=== PATIENT | female | born 1980 | race Caucasian/White ===

== ENCOUNTER 2024-11-17 10:42 | Emergency (ER) | payer SELFPAY ==
[2024-11-17 10:52] VITALS: BP 121/74
--- NOTE | 2024-11-17 11:50 | ED.GENMED ---
History of Present Illness
General
Chief Complaint: Breast Problem
Source: patient
Exam Limitations: none
Time Seen by Provider: 11/17/24 11:33
Nursing documentation reviewed up to this point in time: agreed with
History of Present Illness
History of Present Illness:
Patient is a 41-year-old female who presents to the ER for evaluation of a painful left breast. Several days ago she had a sharp pain behind her left breast and noticed a lump. She reports today the area is now larger and more tender. She does
report the area is red. She denies a ny injury.
Yet she denies any fever or chills. She does not feel ill. She is not breast-feeding/not .
She did have a normal mammogram she believes at age 41.
Currently however she does not have any insurance.
Patient has a known benign pituitary tumor
Review of Systems
Review of Systems
Allergies reviewed?: Yes
All Other Systems: ROS reviewed and negative except as documented in HPI and ROS
Constitutional: Reports no symptoms; Denies fever, fatigue or chills
EENT: Reports no symptoms
Respiratory: Reports no symptoms
Cardiac: Reports no symptoms
ABD/GI: Reports no symptoms
Musculoskeletal: Reports no symptoms
Skin: Reports other (redness /tenderness to left breast )
Psychiatric: Reports no symptoms
Phy Exam
General Physical Exam
General Presentation: no apparent distress
General age: appears stated age
General Skin: warm and dry
General Habitus: normal
General Mental: alert
General Hydration: appears well hydrated
Neurological Exam
Neurological Exam: alert and oriented x3
Musculoskeletal Exam
Musculoskeletal Exam: full ROM
Skin Exam
Skin Exam: normal color, warm/dry and other (Left breast with tenderness induration and redness from left lateral to inferior and right lateral breast; no nipple discharge nipple is not inverted )
Psychiatric Exam
Psychiatric Exam: normal mood/affect
Course
Orders/Labs/Results
Orders:
Orders
11/17/24 11:59
IV Insert/Care/Rem.- Treatment PRN
11/17/24 12:01
Test Result ONCE
11/17/24 12:03
Complete Blood Count/With Diff Urgent
Comprehensive Metabolic Panel Urgent
HCG, Serum Qualitative Screen Urgent
11/17/24 12:27
US Breast Left Ltd WDC Urgent
Reason for Exam: RED, TENDER, PAINFUL LUMP
11/17/24 14:34
Cephalexin Monohydrate [Keflex] 500 mg PO NOW STA
Abnormal Lab Results
11/17/24
12:03
Hgb 11.8 L g/dL
(12.0-16.0)
Hct 34.9 L %
(37.0-47.0)
MCV 77.9 L fL
(81.0-99.0)
MCH 26.3 L pg
(27.0-31.0)
MPV 11.0 H fL
(7.4-10.4)
Abs Immat Gran (auto) 0.1 H 10^3/uL
(0-0.05)
Absolute Neuts (auto) 7.7 H 10^3/uL
(1.4-6.5)
Absolute Monos (auto) 0.9 H 10^3/uL
(0.1-0.6)
Lymphocytes % 18.2 L %
(20.5-51.1)
ALT 48 H U/L
(0-35)
11/17/24 12:03
11/17/24 12:03
Vital Signs
Initial and Last Documented VS:
Initial Vital Signs
Temp Pulse Resp BP Pulse Ox
98.0 F 96 16 121/74 98
11/17/24 10:52 11/17/24 10:52 11/17/24 10:52 11/17/24 10:52 11/17/24 10:52
Last Documented Vital Signs
Temp Pulse Resp BP Pulse Ox
98.0 F 96 16 121/74 98
11/17/24 10:52 11/17/24 10:52 11/17/24 10:52 11/17/24 10:52 11/17/24 10:52
Presidential Support Specialist consulted with Physician
Presidential Support Specialist consulted with physician?: Yes
Name of Physician Consulted: Nano
MDM/Problems Addressed
Differential Diagnosis Includes:
Not limited to breast abscess, cellulitis mastitis
MDM/Problems Addressed:
Patient's ultrasound shows findings suggestive of cellulitis/mastitis with no evidence of abscess no focal collection. Patient is afebrile does not feel ill. Patient is afebrile with a normal white count. Case reviewed ED physician will treat
with Keflex and compresses. Patient does not have insurance we will have patient follow-up with a family practice clinic discussed with patient that she will need follow-up imaging including mammogram also will give patient breast surgery for
follow-up if needed.
Patient does have a known small benign pituitary tumor and she has been followed by fertility specialist they were just watching this. I did advise patient to speak with family practice clinic for follow-up regarding this known pituitary benign
tumor
*Radiology
Radiology exam reviewed: radiology read reviewed
*Pulse Oximetry
Patient hypoxic: no
*Critical Care Note
Total Time (30-74mins, 75-104mins- exclusive of procedures): Not Applicable
ED Attending Note
-
Portions of this chart may have been created with voice recognition software.� Occasional wrong word or��sound alike� substitutions may have occurred due to the inherent limitations of voice recognition software.
Discharge Plan
Departure
Patient Disposition: Home (Routine Discharge)
Date of Disposition: 11/17/24
Time of Disposition: 14:43
Patient with high blood pressure during this ER visit?: No
Covid-19: Not Applicable
Discharge Problem:
Cellulitis of left breast
Instructions: Cellulitis (Skin Infection), Adult (DC)
Prescriptions:
New
cephalexin 500 mg capsule
500 mg PO Q6H Qty: 28 0RF
Referrals:
[facility] [Provider Group]
[facility] [Outside]
Brit Kamara MD [Active] -
NONE,* [Family Provider] -
Activity Restrictions/Additional Instructions:
As discussed your ultrasound is negative for abscess but does show skin infection/cellulitis/mastitis. It is important you take prescribed antibiotic as discussed. This medication was sent to your pharmacy. Warm compresses to breast several times
a day. Follow-up with family practice medicine clinic. Please call today or tomorrow for an appointment in next 2 days. Return however to the ER if any worsening of symptoms include increased pain redness swelling red streaking fever chills.
You will need a follow-up mammogram.
This can be ordered by family practice clinic however you were also given information breast surgeon as well. Return if any worsening of symptoms
Interventions
Interventions:
*General Assessment Last Done: 11/17/24 11:14
ED- Fall Risk Assessment Last Done: 11/17/24 11:14
ED-Skin Assessment Last Done: 11/17/24 11:14
Discharge Date and Time
Print Language: BULGARIAN
[2024-11-17 12:30] LABS: % Basophils 0.5 % (0-2); % Eosinophils 1.2 % (0-6); % Immature Granulocytes 0.5 % (0-0.5); % Lymphocytes 18.2 % (20.5-51.1); % Monocytes 8.1 % (1.7-9.3); % Neutrophils 71.5 % (42.2-75.2); Absolute Basophils 0.1 10^3/uL (0-0.2); Absolute Eosinophils 0.1 10^3/uL (0-0.7); Absolute Immature Granulocytes 0.1 10^3/uL (0-0.05); Absolute Monocytes 0.9 10^3/uL (0.1-0.6); Absolute Neutrophils 7.7 10^3/uL (1.4-6.5); Hematocrit 34.9 % (37.0-47.0); Hemoglobin 11.8 g/dL (12.0-16.0); Mean Corp Hgb Conc. 33.8 g/dL (33.0-37.0); Mean Corpuscular Hgb 26.3 pg (27.0-31.0); Mean Corpuscular Volume 77.9 fL (81.0-99.0); Nucleated Red Blood Cells % 0 %; Platelet Count 283 10^3/uL (130-400); Red Blood Cell Count 4.48 10^6/uL (4.20-5.40); Red Cell Dist. Width 12.7 % (11.5-14.5); White Blood Cell Count 10.7 10^3/uL (4.8-10.8)
[2024-11-17 12:48] LABS: HCG, Serum Qualitative Screen Negative
[2024-11-17 13:00] LABS: ALT (SGPT) 48 U/L (0-35); AST (SGOT) 26 U/L (14-36); Albumin 4.3 g/dl (3.5-5.0); Alkaline Phosphatase 117 U/L (38-126); Blood Urea Nitrogen 13 mg/dl (7-17); Calcium 9.3 mg/dl (8.4-10.2); Carbon Dioxide 25 mmol/L (22-30); Chloride 105 mmol/L (98-107); Glucose 95 mg/dl (70-99); Sodium 138 mmol/L (135-145); Total Bilirubin 0.5 mg/dl (0.2-1.3); Total Protein 7.2 g/dl (6.3-8.2); eGFR > 60.00
[2024-11-17 14:53] VITALS: BP 122/74
[2024-11-17] MEDS: KEFLEX 500 MG PO (15:01)
== END 2024-11-17 16:17 | disposition home or self-care (01) ==
LOC: EMR 10:42
PROVIDERS: Nurse Practitioner; EMERGENCY PHYSICIAN Student in an Organized Health Care Education/Training Program
DX: N61.0 Mastitis without abscess (principal); D35.2 Benign neoplasm of pituitary gland; Z59.71 Insufficient health insurance coverage
CPT/HCPCS: 99284; 76642; 80053; 84703; 85025

== ENCOUNTER 2025-02-04 00:42 | Inpatient (IN) | payer OTHER, SELFPAY ==
[2025-02-03 19:54] VITALS: BP 113/77
[2025-02-03 20:10] LABS: % Basophils 0.6 % (0-2); % Eosinophils 3.7 % (0-6); % Immature Granulocytes 0.5 % (0-0.5); % Lymphocytes 18.9 % (20.5-51.1); % Monocytes 9.2 % (1.7-9.3); % Neutrophils 67.1 % (42.2-75.2); Absolute Basophils 0.1 10^3/uL (0-0.2); Absolute Eosinophils 0.3 10^3/uL (0-0.7); Absolute Lymphocytes 1.7 10^3/uL (1.2-3.4); Absolute Monocytes 0.8 10^3/uL (0.1-0.6); Hematocrit 32.9 % (37.0-47.0); Hemoglobin 10.8 g/dL (12.0-16.0); Mean Corp Hgb Conc. 32.8 g/dL (33.0-37.0); Mean Corpuscular Hgb 25.7 pg (27.0-31.0); Mean Corpuscular Volume 78.3 fL (81.0-99.0); Nucleated Red Blood Cells % 0 %; Platelet Count 387 10^3/uL (130-400); Red Cell Dist. Width 12.9 % (11.5-14.5); White Blood Cell Count 8.9 10^3/uL (4.8-10.8)
[2025-02-03 20:22] LABS: ALT (SGPT) 27 U/L (0-35); AST (SGOT) 20 U/L (14-36); Albumin 4.2 g/dl (3.5-5.0); Alkaline Phosphatase 83 U/L (38-126); Blood Urea Nitrogen 13 mg/dl (7-17); Calcium 9.4 mg/dl (8.4-10.2); Carbon Dioxide 26 mmol/L (22-30); Chloride 105 mmol/L (98-107); Glucose 105 mg/dl (70-99); Potassium 4.3 mmol/L (3.5-5.1); Sodium 141 mmol/L (135-145); Total Bilirubin 0.4 mg/dl (0.2-1.3); Total Protein 7.2 g/dl (6.3-8.2); eGFR > 60.00
[2025-02-03 22:08] VITALS: BP 102/62
--- NOTE | 2025-02-03 23:30 | ED.GENMED ---
History of Present Illness
General
Chief Complaint: Skin Surface Trauma
Source: patient
Exam Limitations: none
Time Seen by Provider: 02/03/25 23:07
Nursing documentation reviewed up to this point in time: agreed with
History of Present Illness
History of Present Illness:
44-year-old female with a history of a pituitary tumor
History of mastitis/cellulitis November 2024
Presents with pain, swelling, redness of her left breast starting on 4�19. It was a smaller area than it is currently. She says that she went to urgent care where they gave her Keflex which helped the previous cellulitis resolved fully in
November. Patient took a 7-day course without significant improvement and in fact now she is having worsening pain, induration and now drainage. She thinks it is draining from an area just medial to her nipple. Her nipple is retracted on that
side and she has a tender left axillary lymph node as well. I did review the previous imaging from November which did not show any area of induration or abscess but cellulitis and the lymph node then as well. Patient has not had a mammogram. She
does not have insurance.
Patient had drainage from the left breast redness off and on all day, increased pain and some chills subjectively.
She also has a slight cough and has history of asthma just when she gets sick. She has not been tested for flu or COVID.
Past History
Past History
ED Past Medical History: Asthma and Other (Pituitary tumor)
Review of Systems
Review of Systems
Allergies reviewed?: Yes
All Other Systems: Not applicable
Phy Exam
Physical Exam
Physical Exam:
GENERAL: Alert , in no apparent distress
EYE: pupils equal and reactive
NECK: Supple
ENT: o/p clr, mmm.
CARDIAC: Regular rate and rhythm .
Left breast significant cellulitis with most of the breast involved including the areola, the left nipple is retracted, there is an area of induration within the erythema about 6 x 5 cm which is very tender
There is a left axillary lymph node
LUNGS: Clear breath sounds bilaterally, no acute respiratory distress, no wheezes/rales/rhonchi
ABDOMEN: Soft, without focal tenderness, no r/g, no cvat, normal bowel sounds
NEUROLOGICAL: Alert and oriented, no focal neuro deficits
SKIN: Warm and dry, skin intact.
MUSCULOSKELETAL: No edema, well perfused. neg elyse's sign
PSYCH: Normal and appropriate interaction.
Course
Orders/Labs/Results
Orders:
Orders
02/03/25 20:02
Comprehensive Metabolic Panel Urgent
HCG, Serum Qualitative Screen Urgent
Comment: ADD ON
02/03/25 20:03
Complete Blood Count/With Diff Urgent
02/03/25 23:21
COVID-19 Antigen Urgent
Source: Nasal Swab
Influenza A+B Rapid Molecular Urgent
ABHINAV Source: Nasal Swab
Specimen Description:
02/03/25 23:22
Ketorolac [Toradol] 30 mg IV NOW STA
CR Chest - 2 Views Urgent
Comment:
Reason For Exam: cough
02/03/25 23:23
Add On- LAB Urgent
Tests Added?: hcg qualitative serum
02/03/25 23:30
Blood Culture Q30M
ABHINAV Source: Blood/Venous
Specimen Description:
02/03/25 23:31
Oxycodone/Acetaminophen [Percocet 5/325] 1 tablet PO NOW STA
Vancomycin [Vancocin] 2,000 mg 0.9% Sodium Chloride 500 ml [Nss] 500 ml IV NOW
02/04/25 00:19
Admit/Transfer Patient As Directed
Co-Sign Provider:
Level of Care: Inpatient admission
Assign to:: Medical/Surgical
Physician / Group: Jose
Diagnosis: Mastitis / Cellulitis
Reason for Hospitalization: Mastitis / Cellulitis - failed OP abx
Expected length of stay greater than two midnights?: Yes
ELOS- Estimated Length of Stay in days: 2
I certify the patient meets the requirements for IP care: Yes
PRN Pain Medication Management As Directed
May give lesser potent ordered pain med per pt: Yes
preference::
Protocol:: Medication orders for pain may be administered in a
manner that supports deferring to patient preference
when the pt is:
- Requesting an ordered lesser potent pain medication.
Least to most potent pain medications are defined
as: acetaminophen < NSAID < tramadol < opioids
(morphine, oxycodone, hydromorphone).
- Requesting a lesser dose of the same medication IF
ORDERED.
- Requesting a less intrusive route of administration
if both routes are prescribed by the provider (PO <
IV).
02/04/25 00:20
Code Status As Directed
Resuscitation Status: Full Code
02/04/25 00:32
Lactic Acid Q4H
Comment: CANCEL 2nd LACTIC ACID IF 1st LACTIC ACID IS LESS THAN 2
Blood Culture Q30M
ABHINAV Source: Blood/Venous
Specimen Description:
02/04/25 01:23
Wound Culture [Wound/Abscess/Other Culture] Urgent
ABHINAV Source: Breast
Specimen Description: Left
Date Specimen was Collected: 02/04/25
Time Specimen was Collected: 01:21
02/04/25 02:33
Acetaminophen [Tylenol] 650 mg PO Q4HPRN PRN
Albuterol Nebs [Ventolin Nebules] 2.5 mg INH R Q4HPRN PRN
HYDROmorphone [Dilaudid] 0.5 mg IV Q4HPRN PRN
Ketorolac [Toradol] 15 mg IV Q6HPRN PRN
VANCOMYCIN Pharmacy to Dose [VANCOCIN Pharmacy to Dose] 1 each Pharmacy To Prepare [Call Pharmacy To Prepare] 0 ml IV PER PROTOCOL
02/04/25 02:33
Breast Surgery Consult Routine
Consulting Provider: Brit Kamara
Was physician already notified: Yes
Reason for Consult: Mastitis / Cellulitis
Prolactin Routine
TSH Reflex To Free T4 Routine
Activity As Directed
Activity Level: Ambulate
I/O [Intake/ Output] As Directed
Frequency: Per unit guidelines
Pneumatic Compression Sleeves As Directed
Type: Knee high
Vital Signs As Directed
Frequency: Per unit guidelines
DX Deep Vein Thrombosis Video Routine
02/04/25 Breakfast
Regular
Basic Metabolic Panel IN AM
Complete Blood Count/No Diff IN AM
US Breast Left Ltd IN AM
Comment:
Reason For Exam: Mastitis / Cellulitis - r/o abscess
Abnormal Lab Results
02/03/25 02/03/25
20:02 20:03
Hgb 10.8 L g/dL
(12.0-16.0)
Hct 32.9 L %
(37.0-47.0)
MCV 78.3 L fL
(81.0-99.0)
MCH 25.7 L pg
(27.0-31.0)
MCHC 32.8 L g/dL
(33.0-37.0)
Absolute Monos (auto) 0.8 H 10^3/uL
(0.1-0.6)
Lymphocytes % 18.9 L %
(20.5-51.1)
Glucose 105 H mg/dl
(70-99)
02/03/25 20:03
02/03/25 20:02
Vital Signs
Initial and Last Documented VS:
Initial Vital Signs
Temp Pulse Resp BP Pulse Ox
36.9 C 78 16 113/77 99
02/03/25 19:54 02/03/25 19:54 02/03/25 19:54 02/03/25 19:54 02/03/25 19:54
Last Documented Vital Signs
Temp Pulse Resp BP Pulse Ox
36.7 C 70 18 114/64 95
02/04/25 02:40 02/04/25 02:40 02/04/25 02:40 02/04/25 02:40 02/04/25 02:40
MDM/Problems Addressed
Differential Diagnosis Includes:
Cellulitis, mastitis, malignancy, abscess
MDM/Problems Addressed:
44-year-old female with previous left mastitis/cellulitis of the left breast in November 2024 presents for recurrence with significant erythema, induration and now drainage, subjective chills but no fever here. Patient has an area of induration
within the cellulitis which is significantly covering the left breast. The nipple is retracted. She has a white count of 8.9. I talked to breast surgeon Dr. Kamara who recommended IV vancomycin, breast ultrasound and likely IR drainage if there
is a collection which can be done tomorrow.
*Critical Care Note
Total Time (30-74mins, 75-104mins- exclusive of procedures): Not Applicable
ED Attending Note
-
Portions of this chart may have been created with voice recognition software.� Occasional wrong word or��sound alike� substitutions may have occurred due to the inherent limitations of voice recognition software.
Discharge Plan
Departure
Patient Disposition: Admit
Date of Disposition: 02/03/25
Time of Disposition: 23:31
Admit to: Med/Surg
Presentation/result/management discussed w/ accepting MD/DO: Hospitalist
Condition: Fair
Covid-19: Not Applicable
Discharge Problem:
Abscess of breast, Cellulitis of breast
Interventions
Interventions:
*Risk Screen - Suicide Last Done: 02/03/25 19:54
*General Assessment Last Done: 02/03/25 19:54
*Neglect/Abuse Screening Last Done: 02/03/25 19:54
*ED- Fall Risk Assessment Last Done: 02/03/25 23:45
*ED COVID-19 Vaccine History Last Done: 02/03/25 19:54
*Nursing Disposition Last Done: 02/04/25 02:30
ED-Skin Assessment Last Done: 02/03/25 23:45
Discharge Date and Time
Discharge Date/Time: 02/04/25 02:30
[2025-02-04 00:02] VITALS: BMI 28.7
[2025-02-04 00:10] VITALS: BP 130/81
[2025-02-04 00:14] LABS: HCG, Serum Qualitative Screen Negative
--- NOTE | 2025-02-04 00:24 | HPS.HSE ---
Family Physician
-
Family Physician: * NONE
Chief Complaint
-
L Breast pain, swelling, redness
History of Present Illness
Patient is a 44y F with PMH significant for pituitary adenoma and thyroid disease who presents to ED complaining of pain, swelling and redness of the L breast. Patient states that her symptoms started about 2 weeks ago and have been steadily
progressive since that time. Patient noted severe pain, swelling and redness in the L breast. She was seen at an Urgent Care and started on Keflex which she took for one week. She noted perhaps mild improvement in redness - but symptoms did not
resolve. Over the past few days, her pain and swelling have become much worse. Patient notes that she has had oozing of blood and purulent discharge from the breast in the area superior to the nipple. She states that the overlying skin in this
area has 'peeled off'. Patient reports sweats and chills over the past 24 hours. She presented to the ED for further evaluation.
Patient had a similar episode in November of this year. Symptoms at that time fully resolved after a course of Keflex.
She has had a single mammogram in the past which was reportedly unremarkable.
Medical History
Past Medical History
Past Medical History: Reports Other
Additional Past Medical History:
Pituitary Adenoma
Hypothyroidism
Asthma
Past Surgical History: Reports Other
Additional Past Surgical History:
x 2
Social History
Tobacco: Non-smoker
Alcohol: Occasional
Drug: None
Family History
Family History: Other (MGM: Breast Cancer Mother: Thyroid Disease, MS)
Allergies / Home Medications
Allergies reflects when Allergies were last updated in [facility].
Home Medications with original date entered in [facility]
Allergy/Medication List:
Allergies
Allergy/AdvReac Type Severity Reaction Status Date / Time
No Known Allergies Allergy Verified 02/03/25 20:00
Home Medications
albuterol sulfate 90 mcg/actuation aerosol inhaler 2 puff inhalation Q6H PRN SOB 02/04/25
ibuprofen 200 mg tablet 800 mg PO Q6H PRN Pain 02/04/25
vit no.95-ferrous fumarate 28 mg-folic acid 800 mcg tablet () 1 tab PO DAILY 02/04/25
Review of Systems
-
History Source: Patient
A 12 point ROS was completed and negative except as noted: Yes
Constitutional: Reports Chills; Denies Fever or Fatigue
EENT: Denies Sore Throat
Respiratory: Reports Cough; Denies Trouble Breathing
Cardiac: Denies Chest Pain or Palpitations
Abdomen/GI: Denies Abdominal Pain, Nausea, Vomiting or Diarrhea
: Denies Dysuria or Frequency
Musculoskeletal: Denies Edema
Skin: Reports Other (Pain, swelling, redness L breast)
Neurological: Denies Dizzy or Headache
Psych: Denies Depression or Anxiety
Physical Exam
Vital Signs
Vital Signs
Temp Pulse Resp BP Pulse Ox
98.5 F 72 16 102/62 100
02/03/25 19:54 02/03/25 22:08 02/03/25 19:54 02/03/25 22:08 02/03/25 22:08
Physical Exam
General: Other (44y F in mild distress due to pain in the L breast.)
HEENT: Moist mucous membranes and PERRLA
Respiratory: Clear; No Wheezes, Rales or Rhonchi
Cardiac: S1/S2 and Regular Rhythm; No Murmur
Breast: Other (Induration of the breast centering on the areola. Pos tenderness without evident fluctuance. Increased warmth and erythema. Pos associated axillary adenopathy.)
GI: Soft, Non Tender, Non Distended and Normal Bowel Sounds
Musculoskeletal: No Clubbing, No Cyanosis and No Edema
Neuro: AO x 3
Laboratory Results
-
02/03/25 20:03
02/03/25 20:02
Laboratory Results
Total Bilirubin 0.4 mg/dl (0.2-1.3) 02/03/25 20:02
AST 20 U/L (14-36) 02/03/25 20:02
ALT 27 U/L (0-35) 02/03/25 20:02
Alkaline Phosphatase 83 U/L (38-126) 02/03/25 20:02
Impression/Plan
-
A/P: Patient is a 44y F with PMH significant for asthma and pituitary adenoma who presents to ED c/o pain, swelling and redness in the L breast for about 2 weeks.
Mastitis / Cellulitis of the Left Breast
- Admit for further evaluation and treatment. Failed outpatient oral antibiotics.
- IV Vancomycin for now.
- Culture of discharge sent from ED.
- Breast Surgery evaluation for additional recommendations.
- Supportive care including pain control, etc.
- Follow for clinical improvement.
Pituitary Adenoma
- Unclear details. Patient states that she was diagnosed in 2022 and completed 3 months of medication to shrink the tumor.
- Did not follow-up after that.
- No vision changes or evident new symptoms.
Hypothyroidism
- Patient stopped T4 supplementation due to hair changes / thinning.
- Update TFTs.
Mild Intermittent Asthma
- Stable. Albuterol PRN.
DVT Prophylaxis: SCDs
Code Status: Full
[2025-02-04] MEDS: PERCOCET 5/325 1 TABLET PO (01:00)
[2025-02-04 01:10] VITALS: BP 120/74
[2025-02-04] MEDS: TORADOL 30 MG IV (01:15)
[2025-02-04 01:34] LABS: COVID-19 Antigen Negative (Negative)
[2025-02-04] MEDS: VANCOCIN 530 MG IV (01:40)
[2025-02-04] MEDS: FLUSH (NSS) 1 FLUSH IV (01:45)
[2025-02-04 01:58] LABS: Lactic Acid 0.7 mmol/L (0.7-2.0)
[2025-02-04 02:40] VITALS: BP 114/64; BMI 28.9
[2025-02-04] MEDS: DILAUDID 0.5 MG IV ×4 (03:16→20:03)
[2025-02-04] MEDS: FLUSH (NSS) 2 FLUSH IV (03:17)
--- NOTE | 2025-02-04 04:27 | PTCARENOTE ---
Patient received from ED via stretcher and ambulated to bed. IV Vanco infusing per order. Patient was oriented to room and surroundings. Dilaudid for left breast pain per order. See nursing assessment for physical findings.
[2025-02-04 07:15] LABS: Hematocrit 29.3 % (37.0-47.0); Hemoglobin 9.5 g/dL (12.0-16.0); Mean Corp Hgb Conc. 32.4 g/dL (33.0-37.0); Mean Corpuscular Hgb 25.5 pg (27.0-31.0); Mean Corpuscular Volume 78.8 fL (81.0-99.0); Mean Platelet Volume 10.6 fL (7.4-10.4); Platelet Count 324 10^3/uL (130-400); Red Blood Cell Count 3.72 10^6/uL (4.20-5.40)
--- NOTE | 2025-02-04 07:49 | CON.ONC ---
Impression
Impression
43 Y/O female with left breast abscess.
Plan
Plan
For US today and IR drainage. These patients follow with me as an outpatient for drain management.
Suggest multimodality pain medication, IV or PO Tylenol 3000mg per day in divided doses, Standing Tordal dose and Dilaudid for breakthrough
Also needs bowel protocol.
Patient History
History of Present Illness
44 Y/O female admitted with left breast abscess
Past-Medical/Surgical History
The pt is menses onset age 12, first age 18, menstruating, MGM with breast ca unknown age, mammo at 41 [facility] who started in Nov
with left breast cellulitis that responded to antibiotic therapy, but never completely resolved. At [facility], the breast became more erythematous and the
pt again went to an Urgent Care for care and was placed on an antibiotic. Over the past few days, the breast became more indurated and painful and
she experienced sweats and shaking chills with a fever. She present to the ED overnight.
Patient Medication
�Medication �Instructions �Recorded �Confirmed �Last Taken �Type
albuterol sulfate 90 mcg/actuation 2 puff inhalation Q6H PRN SOB 02/04/25 02/04/25 Unknown History
aerosol inhaler
ibuprofen 200 mg tablet 800 mg PO Q6H PRN Pain 02/04/25 02/04/25 Unknown History
vit no.95-ferrous 1 tab PO DAILY 02/04/25 02/04/25 Unknown History
fumarate 28 mg-folic acid 800 mcg
tablet ()
Active Medications
Generic Name Dose Route Start Last Admin
Trade Name Freq PRN Reason Stop Dose Admin
Acetaminophen 650 mg 02/04/25 02:33
Acetaminophen 325 Mg Tablet PO 03/04/25 02:32
Q4HPRN PRN
Mild Pain / Temp > 101
Albuterol Sulfate 2.5 mg 02/04/25 02:33
Albuterol Nebs 2.5 Mg/3 Ml Ampul INH
R Q4HPRN PRN
SOB
Protocol
Hydromorphone HCl 0.5 mg 02/04/25 02:33 02/04/25 03:16
Hydromorphone 0.5 Mg/0.5 Ml Syringe IV 02/18/25 02:32 0.5 mg
Q4HPRN PRN Administration
Severe Pain
Vancomycin HCl 1 each/ Device 0 mls @ 0 mls/hr 02/04/25 02:33
IV
PER PROTOCOL CHELSEA
As Directed
Ketorolac Tromethamine 15 mg 02/04/25 02:33
Ketorolac 15 Mg/Ml Injection IV 02/09/25 02:32
Q6HPRN PRN
Moderate Pain
Sodium Chloride 0 flush 02/04/25 02:00 02/04/25 03:17
Sodium Chloride 0.9% (Flush) Syringe IV 03/04/25 01:59 2 flush
PER PROTOCOL CHELSEA Administration
Review of Systems
-
History Source: Patient
All Other Systems: Reviewed and Negative
Constitutional: Reports Night Sweats and Chills
EENT: Reports No Symptoms
Respiratory: Reports No Symptoms
Cardiac: Reports No Symptoms
GI: Reports No Symptoms
Breast: Reports Mass/Lump, Skin Changes, Pain and Other (discharge from the nipple complex)
: Reports No Symptoms
Musculoskeletal: Reports No Symptoms
Skin: Reports No Symptoms
Neuro: Reports No Symptoms
Endocrine: Reports No Symptoms
Hematologic/Lymphatic: Reports No Symptoms
Allergy / Immunology: Reports No Symptoms
Psych: Reports No Symptoms
Physical Exam
-
General: Well Developed, Well Nourished and Pain
Cardiology: Normal Sinus Rhythm
Pulmonary: Clear
GI: Soft
Musculoskeletal: No Clubbing and No Cyanosis
Extremities: No C/C/E
Neurology: Non Focal
Skin: Warm and Dry
Hematologic / Lymphatic: No Lymphadenopathy
Psych: Calm
Labs
Lab Results
WBC 7.0 10^3/uL (4.8-10.8) 02/04/25 06:42
RBC 3.72 10^6/uL (4.20-5.40) L 02/04/25 06:42
Hgb 9.5 g/dL (12.0-16.0) L 02/04/25 06:42
Hct 29.3 % (37.0-47.0) L 02/04/25 06:42
MCV 78.8 fL (81.0-99.0) L 02/04/25 06:42
MCH 25.5 pg (27.0-31.0) L 02/04/25 06:42
MCHC 32.4 g/dL (33.0-37.0) L 02/04/25 06:42
RDW 13.0 % (11.5-14.5) 02/04/25 06:42
Plt Count 324 10^3/uL (130-400) 02/04/25 06:42
MPV 10.6 fL (7.4-10.4) H 02/04/25 06:42
Abs Immat Gran (auto) 0.0 10^3/uL (0-0.05) 02/03/25 20:03
Absolute Neuts (auto) 6.0 10^3/uL (1.4-6.5) 02/03/25 20:03
Absolute Lymphs (auto) 1.7 10^3/uL (1.2-3.4) 02/03/25 20:03
Absolute Monos (auto) 0.8 10^3/uL (0.1-0.6) H 02/03/25 20:03
Absolute Eos (auto) 0.3 10^3/uL (0-0.7) 02/03/25 20:03
Absolute Basos (auto) 0.1 10^3/uL (0-0.2) 02/03/25 20:03
Immature Gran % 0.5 % (0-0.5) 02/03/25 20:03
Neutrophils % 67.1 % (42.2-75.2) 02/03/25 20:03
Lymphocytes % 18.9 % (20.5-51.1) L 02/03/25 20:
Monocytes % 9.2 % (1.7-9.3) 02/03/25 20:
Eosinophils % 3.7 % (0-6) 02/03/25 20:
Basophils % 0.6 % (0-2) 02/03/25 20:03
Creatinine 0.7 mg/dL (0.6-1.0) 02/03/25 20:02
Vital Signs
Vital Signs
Temp Pulse Resp BP Pulse Ox
98.0 F 70 18 114/64 95
02/04/25 02:40 02/04/25 02:40 02/04/25 02:40 02/04/25 02:40 02/04/25 02:40
--- NOTE | 2025-02-04 08:11 | W.PN.HOSP.TC ---
Today's Communication/Plan
-
Continue IV antibiotics, follow cultures
Assessment / Plan
Assessment / Plan
Physical Exam
General: Not in acute distress
HEENT: Normocephalic. Moist mucous membranes
Respiratory: Clear to Auscultation Bilaterally
Cardiac: S1/S2 and Regular Rhythm
GI: Soft, Non Tender, Non Distended and Normal Bowel Sounds
Musculoskeletal: No Cyanosis and No Edema
Neuro: AO x 3
Assessment/Plan
44y F with PMH significant for pituitary adenoma and thyroid disease who presented to ED complaining of pain, swelling and redness of the L breast. Patient states that her symptoms started about 2 weeks prior and have been steadily progressive
since that time. Patient noted severe pain, swelling and redness in the L breast. She was seen at an Urgent Care and started on Keflex which she took for one week. She noted perhaps mild improvement in redness - but symptoms did not resolve.
Over the few days prior to presentation, her pain and swelling became much worse. Patient noted that she has had oozing of blood and purulent discharge from the breast in the area superior to the nipple. She stated that the overlying skin in this
area has 'peeled off'. Patient reported sweats and chills over the 24 hours prior to presentation. She presented to the ED for further evaluation.
Patient had a similar episode in November 2024 -- symptoms at that time fully resolved after a course of Keflex.
She has had a single mammogram in the past which was reportedly unremarkable.
Mastitis / Cellulitis of the Left Breast with bloody and purulent drainage prior to arrival -- failed outpatient Keflex
History of Mastitis / Cellulitis of the Left Breast in November 2024 -- at that time did resolved with Keflex
Sweats and Chills prior to presentation
- Continue IV Vancomycin for now.
- Culture of discharge sent from ED -- follow-up
- Breast Surgery evaluation for additional recommendations.
- Breast Ultrasound with marked edema but no abscess collection --> discussed with IR, no role for IR intervention
- Multimodality pain control: Tylenol 3000mg per day in divided doses, Standing Toradol dose and Dilaudid for breakthrough pain
- Bowel regimen
- Patient can call Dr. Kamara's office on discharge to follow-up
- Contact precautions as she is draining fluid as per Dr. Kamara
Pituitary Adenoma
- Unclear details. Patient states that she was diagnosed in 2022 and completed 3 months of medication to shrink the tumor.
- Did not follow-up after that.
- Elevated prolactin this admission
- No vision changes or evident new symptoms.
Hypothyroidism
- Patient stopped T4 supplementation due to hair changes / thinning.
- Update TFTs noted
Mild Intermittent Asthma
- Stable. Albuterol PRN.
DVT Prophylaxis: SCDs. Lovenox.
Code Status: Full Code
Anticipated Discharge: 24 - 48 hours
Subjective/Interval History
-
Date of Service: February 04, 2025
Patient was seen and examined. She felt a bit better, denied any new symptoms or complaints.
Objective Data
-
Labs:
Laboratory Results
02/03/25 02/04/25
20:02 06:42
WBC 7.0
Hgb 9.5 L
Hct 29.3 L
Plt Count 324
Sodium 141 Pending
Potassium 4.3 Pending
Chloride 105 Pending
Carbon Dioxide 26 Pending
BUN 13 Pending
Creatinine 0.7 Pending
Glucose 105 H Pending
Calcium 9.4 Pending
Total Bilirubin 0.4
AST 20
ALT 27
Alkaline Phosphatase 83
Vital Signs:
Vital Signs
Temp Pulse Resp BP Pulse Ox
98.0 F 70 18 114/64 95
02/04/25 02:40 02/04/25 02:40 02/04/25 02:40 02/04/25 02:40 02/04/25 02:40
I&O
02/03/25 02/04/25 02/05/25
06:59 06:59 06:59
Intake Total 500 / 500 960 / 960
Balance 500 / 500 960 / 960
[2025-02-04 08:21] VITALS: BP 115/67
[2025-02-04] MEDS: TORADOL 15 MG IV ×2 (08:51→15:56)
[2025-02-04 09:37] LABS: Free T4 0.98 ng/dl (0.78-2.19)
[2025-02-04 09:38] LABS: Blood Urea Nitrogen 11 mg/dl (7-17); Calcium 8.8 mg/dl (8.4-10.2); Carbon Dioxide 23 mmol/L (22-30); Chloride 106 mmol/L (98-107); Estimated Creatinine Clearance 85 ml/min; Glucose 149 mg/dl (70-99); Potassium 3.6 mmol/L (3.5-5.1); Sodium 140 mmol/L (135-145); eGFR > 60.00
--- NOTE | 2025-02-04 09:48 | PHA.VAN.IN ---
Assessment
- Assessment
Renal Function: Appears similar to baseline
AUC Dosing Plan
- Dosing Variables
Dosing Weight (kg): 65
Dosing CrCl (ml/min): 85
Vd coefficient (L/kg): 0.7
- Empiric Dosing
Initial / Loading Dose: 1500mg - 5/2 01:40
Maintenance Regimen: Vanc 750mg Q12H starting at 1800
Estimated AUC (mcg*h/mL): 456
Estimated Peak (mcg*h/mL): 27.8
Estimated Trough (mcg/ml): 12.2
Estimated Half Life (H): 9.2
- Monitoring
No levels ordered at this time: consider levels in next few days
Pharmacokinetics Vancomycin I
- -
Patient Age: 44
Patient Sex: Female
Vancomycin Day #: 1
Indication: Skin And Soft Tissue
Requesting Provider: Dr. Garcia
Pertinent Antimicrobial Allergies:
NKDA
Height / Weight:
Height 4 ft 11 in
Actual Weight 64.864 kg
Pertinent Past Medical History: Pituitary adenoma
- Vital Signs / Lab Results
Temp Pulse Resp BP Pulse Ox
98 F 67 18 115/67 99
02/04/25 08:21 02/04/25 08:21 02/04/25 08:21 02/04/25 08:21 02/04/25 08:21
Lab Results - Hematology
02/03/25 02/04/25
20:03 06:42
WBC 8.9 7.0
Lab Results - Chemistry
02/03/25 02/04/25
20:02 06:42
BUN 13 11
Creatinine 0.7 0.7
Estimated Creat Clear 85
Albumin 4.2
02/04/25 02/04/25
00:07 00:32
Lactic Acid Cancelled 0.7
Microbiology Results
02/04/25 01:23 Gram Stain - Preliminary
Breast - Left
02/04/25 00:07 Influenza Types A & B (FAUSTO) - Final
Nasal Swab Negative for Influenza A & B, NAAT
Negative results must be combined with clinical observations
and patient history.
Nucleic Acid Amplification test (NAAT)performed on the
[employer] platform.
--- NOTE | 2025-02-04 11:49 | W.PN.UPDATE ---
Update Note
Progress Note Update
44 yo female with left breast cellulitis on abx.
US 02/04/25 shows no discreet abscess. No role for IR at this time
Continue ABX
[2025-02-04 15:00] LABS: Prolactin 75.2 ng/ml (3.0-18.6)
--- NOTE | 2025-02-04 15:10 | CM ---
Pt off the flr for ultrasound. Spoke w/ patient's sig other for initial assessment. Patient is a 44y F with PMH significant for pituitary adenoma and thyroid disease who presents to ED complaining of pain, swelling and redness of the L breast.
Patient resides w/ sig other in a [facility]- 1 step to enter. Independent w/ ambulating, no device required. Independent w/ ADLs. Patient has a nebulizer that is used as needed. No other DME identified. Denies SNF/HC hx.
Address and point of contact verified. Per sig other, patient does not currently have insurance, patient is in the process of switching insurances. According to sig other, patient should have active insurance soon.
Patient uses [facility] pharmacy in [place]
Plan: Anticipate home, no needs
[2025-02-04] MEDS: TYLENOL 1000 MG PO ×2 (15:40→23:07)
[2025-02-04 16:18] VITALS: BP 109/64
--- NOTE | 2025-02-04 17:00 | TRANSFER ---
Patient transferred from to 4W. Ambulated to new room. AAOx3, denies any acute complaints at this time. Call olivier within reach. Plan of care ongoing.
[2025-02-04] MEDS: VANCOCIN 150 IV (17:18)
[2025-02-04] MEDS: SENOKOT-S 1 TABLET PO (19:52)
[2025-02-04 23:15] VITALS: BP 117/62
[2025-02-05 00:23] VITALS: BP 117/62
[2025-02-05] MEDS: VANCOCIN 150 IV (06:00)
[2025-02-05 07:00] VITALS: BP 119/69
[2025-02-05 07:15] LABS: % Basophils 0.5 % (0-2); % Eosinophils 5.8 % (0-6); % Immature Granulocytes 0.5 % (0-0.5); % Lymphocytes 24.3 % (20.5-51.1); % Monocytes 8.5 % (1.7-9.3); % Neutrophils 60.4 % (42.2-75.2); Absolute Eosinophils 0.4 10^3/uL (0-0.7); Absolute Lymphocytes 1.6 10^3/uL (1.2-3.4); Absolute Monocytes 0.5 10^3/uL (0.1-0.6); Absolute Neutrophils 3.9 10^3/uL (1.4-6.5); Hematocrit 31.1 % (37.0-47.0); Hemoglobin 10.1 g/dL (12.0-16.0); Mean Corp Hgb Conc. 32.5 g/dL (33.0-37.0); Mean Corpuscular Hgb 25.6 pg (27.0-31.0); Mean Corpuscular Volume 78.9 fL (81.0-99.0); Mean Platelet Volume 10.8 fL (7.4-10.4); Nucleated Red Blood Cells % 0 %; Platelet Count 321 10^3/uL (130-400); Red Blood Cell Count 3.94 10^6/uL (4.20-5.40); White Blood Cell Count 6.4 10^3/uL (4.8-10.8)
[2025-02-05 07:37] LABS: Blood Urea Nitrogen 13 mg/dl (7-17); Calcium 8.8 mg/dl (8.4-10.2); Carbon Dioxide 28 mmol/L (22-30); Chloride 107 mmol/L (98-107); Estimated Creatinine Clearance 85 ml/min; Glucose 105 mg/dl (70-99); Potassium 4.2 mmol/L (3.5-5.1); Sodium 141 mmol/L (135-145); eGFR > 60.00
[2025-02-05] MEDS: SENOKOT-S 1 TABLET PO (09:08)
[2025-02-05] MEDS: TYLENOL 1000 MG PO ×3 (09:08→22:59)
[2025-02-05] MEDS: TORADOL 15 MG IV ×2 (09:29→20:50)
--- NOTE | 2025-02-05 10:56 | W.PN.HOSP.TC ---
Today's Communication/Plan
-
Add cefepime
Consult ID
Assessment / Plan
Assessment / Plan
Physical Exam
General: Not in acute distress
HEENT: Normocephalic. Moist mucous membranes
Respiratory: Clear to Auscultation Bilaterally
Cardiac: S1/S2 and Regular Rhythm
GI: Soft, Non Tender, Non Distended and Normal Bowel Sounds
Musculoskeletal: No Cyanosis and No Edema
Neuro: AO x 3
Psych:calm
Assessment/Plan
# Left breast Mastitis / Cellulitis of the Left Breast with bloody and purulent drainage prior to arrival -- failed outpatient Keflex
History of Mastitis / Cellulitis of the Left Breast in November 2024 -- at that time did resolved with Keflex
Sweats and Chills prior to presentation
- Culture of discharge sent from ED -- pending result
- Breast Ultrasound with marked edema but no abscess collection --> discussed with IR, no role for IR intervention
- Multimodality pain control: Tylenol 3000mg per day in divided doses, Standing Toradol dose and Dilaudid for breakthrough pain
- Bowel regimen
- Appreciate Dr. Kamara's help
- Add Cefepime
Consult ID doctor
Pituitary Adenoma
- Unclear details. Patient states that she was diagnosed in 2022 and completed 3 months of medication to shrink the tumor.
- Did not follow-up after that.
- Elevated prolactin this admission
- No vision changes or evident new symptoms.
Hypothyroidism
- Patient stopped T4 supplementation due to hair changes / thinning.
- Update TFTs noted
Mild Intermittent Asthma
- Stable. Albuterol PRN.
DVT Prophylaxis: SCDs. Lovenox.
Code Status: Full Code
Total time spent to see the patient, examine the patient, review data and lab result, discuss treatment plan with the patient, nursing staff around 55 minutes
Anticipated Discharge: > 48 hours
Subjective/Interval History
-
Date of Service: February 05, 2025
She is feeling better
no nausea
Would like to eat diet
Objective Data
-
Labs:
Laboratory Results
02/05/25
07:01
WBC 6.4
Hgb 10.1 L
Hct 31.1 L
Plt Count 321
Sodium 141
Potassium 4.2
Chloride 107
Carbon Dioxide 28
BUN 13
Creatinine 0.7
Glucose 105 H
Calcium 8.8
Vital Signs:
Vital Signs
Temp Pulse Resp BP Pulse Ox
97.8 F 59 20 119/69 97
02/05/25 07:00 02/05/25 07:00 02/05/25 07:00 02/05/25 07:00 02/05/25 07:00
I&O
02/04/25 02/05/25 02/06/25
06:59 06:59 06:59
Intake Total 500 / 500 1440 / 1440
Balance 500 / 500 1440 / 1440
--- NOTE | 2025-02-05 11:12 | PHA.VAN.FU ---
Vancomycin Assessment / Plan
- Assessment
Renal Function: Stable
WBC's are: WNL
In the past 24 hrs, patient has been: Afebrile
Concomitant Antimicrobials: Cefepime
- Dosing Plan
Continue: vancomycin 750mg q12h - first dose 02/04 1800
- Monitoring Plan
No level(s) ordered at this time: consider levels after Friday nadege dose
- Follow Up
Pharmacy will continue to follow.
Vancomycin Follow UP
- -
Patient Age: 44
Patient Sex: Female
Vancomycin Day #: 2
Indication: Skin And Soft Tissue
Requesting Provider: Dr. Garcia
Pertinent Antimicrobial Allergies:
NKDA
Height / Weight:
Height 4 ft 11 in
Actual Weight 64.864 kg
Pertinent Past Medical History: Pituitary adenoma
- Vital Signs / Lab Results
Temp Pulse Resp BP Pulse Ox
97.8 F 59 20 119/69 97
02/05/25 07:00 02/05/25 07:00 02/05/25 07:00 02/05/25 07:00 02/05/25 07:00
Lab Results - Hematology
02/03/25 02/04/25 02/05/25
20:03 06:42 07:01
WBC 8.9 7.0 6.4
Lab Results - Chemistry
02/03/25 02/04/25 02/05/25
20:02 06:42 07:01
BUN 13 11 13
Creatinine 0.7 0.7 0.7
Estimated Creat Clear 85 85
Albumin 4.2
02/04/25 02/04/25
00:07 00:32
Lactic Acid Cancelled 0.7
Microbiology Results
02/04/25 06:24 MRSA Screen - Final
Nose No Methicillin Resistant Staphylococcus aureus isolated.
02/04/25 00:32 Blood Culture - Preliminary
Blood/Venous No Growth in 24 hours- Final report to follow
02/04/25 00:32 Blood Culture - Preliminary
Blood/Venous No Growth in 24 hours- Final report to follow
02/04/25 01:23 Gram Stain - Preliminary
Breast - Left
02/04/25 00:07 Influenza Types A & B (FAUSTO) - Final
Nasal Swab Negative for Influenza A & B, NAAT
Negative results must be combined with clinical observations
and patient history.
Nucleic Acid Amplification test (NAAT)performed on the
[employer] platform.
[2025-02-05] MEDS: MAXIPIME 2000 MG IV (13:18)
[2025-02-05] MEDS: STERILE WATER FOR INJECTION 10 ML IV ×3 (13:20→22:59)
[2025-02-05] MEDS: DILAUDID 0.5 MG IV ×2 (13:33→18:16)
--- NOTE | 2025-02-05 14:08 | CON.ID ---
Consultation
-
Date/Time Consultation Requested: 02/05/2025 1057
Date/Time Consultation Performed: 02/05/2025 1341
Requesting Provider: Dr. Garcia
Performing Provider: Dr. Nova
Reason for Consultation: Left breast abscess
Chief Complaint / Past History
History of Present Illness
Eugenia Medley is a 44-year-old female being evaluated at the request of Dr. Garduno in regards to left breast abscess. History is obtained from chart review, along with patient interview. Additional history is obtained from review of old records
contained in the hospital EMR system.
The patient reports a prior history of left breast infection in mid November, when she developed a lump in the superior portion of her left breast. After approximately 1 week she presented for evaluation, and ultimately she was discharged on a
course of Keflex. She notes that after a week of antibiotics the area completely resolved. She had no recurrence of issues until approximately 2 weeks ago when she was visiting her daughter in [facility] and noticed a lump and pain again
in the left breast. She was prescribed Keflex, and she noted some mild improvement over the intervening week, but then she developed increasing pain and swelling of the area over the past several days and came to the ER for further evaluation.
Additionally, with this episode she noted some drainage from the 11:00 area just outside of the nipple line. She additionally noted some bloody drainage. She admits to some fevers prior to coming to the ER.
Here, ultrasound imaging did not reveal a discrete abscess. Infectious Diseases asked to comment on further antimicrobial therapy. She has not had any fever since admission.
Past History
Additional Past Medical History:
Benign pituitary tumor
Hypothyroidism
Asthma
Additional Past Surgical History:
x 2
Allergy History:
No Known Allergies Allergy (Verified 02/03/25 20:00)
Medications Reviewed: Yes
Current Antibiotics:
Vancomycin
Cefepime
Social History
Tobacco: Non-Smoker
Alcohol: None
Drug: None
Personal: Partner
Living: With Family
Employment: Employed
Family History
Family History: Not Pertinent
Review of Systems
Vital Signs
Temp Pulse Resp BP Pulse Ox
97.8 F 59 20 119/69 97
02/05/25 07:00 02/05/25 07:00 02/05/25 07:00 02/05/25 07:00 02/05/25 07:00
Physical Exam
Physical Exam
Constitutional: No Acute Distress, Comfortable and Non-toxic
Eyes: Pupils Equal, Pupils Round, No Conjunctival Hemorrhage and Sclera Anicteric
Oral: No Thrush and No Ulcers
Cardiovascular: Regular Rate and S1/S2; Negative S3/S4
Pulmonary: Clear; Negative Wheezes, Rales or Rhonchi
Gastrointestinal: Soft, Non Tender and Non Distended
Extremities: Negative Edema, Cyanosis or Erythema
Skin: Other (Left breast area with erythema in the periareolar area especially superior. There is some suspected fluctuance in the 12 o'clock position)
Neurological: Awake and Alert
Psychological: Calm
.
Lab / Diagnostic Study Results
02/05/25 07:01
02/05/25 07:01
Abs Immat Gran (auto) 0.0 10^3/uL (0-0.05) 02/05/25 07:01
Absolute Neuts (auto) 3.9 10^3/uL (1.4-6.5) 02/05/25 07:01
Absolute Lymphs (auto) 1.6 10^3/uL (1.2-3.4) 02/05/25 07:01
Absolute Monos (auto) 0.5 10^3/uL (0.1-0.6) 02/05/25 07:01
Absolute Basos (auto) 0.0 10^3/uL (0-0.2) 02/05/25 07:01
Immature Gran % 0.5 % (0-0.5) 02/05/25 07:01
Neutrophils % 60.4 % (42.2-75.2) 02/05/25 07:01
Lymphocytes % 24.3 % (20.5-51.1) 02/05/25 07:01
Monocytes % 8.5 % (1.7-9.3) 02/05/25 07:01
Eosinophils % 5.8 % (0-6) 02/05/25 07:01
Basophils % 0.5 % (0-2) 02/05/25 07:01
Lactic Acid 0.7 mmol/L (0.7-2.0) 02/04/25 00:32
Microbiology Results
Micro:
02/04/25 01:23 Wound Culture - Preliminary
Breast - Left No growth
Gram Stain - Preliminary
02/04/25 06:24 MRSA Screen - Final
Nose No Methicillin Resistant Staphylococcus aureus isolated.
02/04/25 00:32 Blood Culture - Preliminary
Blood/Venous No Growth in 24 hours- Final report to follow
02/04/25 00:32 Blood Culture - Preliminary
Blood/Venous No Growth in 24 hours- Final report to follow
02/04/25 00:07 Influenza Types A & B (FAUSTO) - Final
Nasal Swab Negative for Influenza A & B, NAAT
Negative results must be combined with clinical observations
and patient history.
Nucleic Acid Amplification test (NAAT)performed on the
[employer] platform.
Imaging:
02/04/2025 Left breast ultrasound: Area of concern demonstrates marked edema in the soft tissues with fluid interspersed, but no discrete fluid collection. There is marked skin thickening. No overt abscess noted. Please see full dictation for
additional detail.
Assessment / Plan
Left breast cellulitis
Suspected left breast abscess
Benign pituitary tumor
Hypothyroidism
Asthma
Recommendations:
Discontinue further vancomycin.
Continue with cefepime for now.
K-pad to the area.
Monitor for clinical improvement.
Monitor area of suspected fluctuance; if persists or progresses, may need I&D or aspiration.
[2025-02-05 15:00] VITALS: BP 113/67
[2025-02-05] MEDS: MAXIPIME 1000 MG IV ×2 (18:02→22:59)
[2025-02-05] MEDS: SENOKOT-S PO ×2 (20:49→20:57)
[2025-02-05 23:07] VITALS: BP 108/61
[2025-02-06] MEDS: MAXIPIME 1000 MG IV ×3 (05:57→16:56)
[2025-02-06] MEDS: STERILE WATER FOR INJECTION 10 ML IV ×3 (05:57→16:56)
[2025-02-06] MEDS: DILAUDID 0.5 MG IV ×3 (06:06→20:35)
[2025-02-06 07:00] VITALS: BP 109/63
[2025-02-06 07:46] LABS: % Basophils 0.5 % (0-2); % Eosinophils 5.1 % (0-6); % Immature Granulocytes 0.3 % (0-0.5); % Lymphocytes 27.4 % (20.5-51.1); % Monocytes 9.4 % (1.7-9.3); % Neutrophils 57.3 % (42.2-75.2); Absolute Eosinophils 0.3 10^3/uL (0-0.7); Absolute Lymphocytes 1.7 10^3/uL (1.2-3.4); Absolute Monocytes 0.6 10^3/uL (0.1-0.6); Absolute Neutrophils 3.5 10^3/uL (1.4-6.5); Hemoglobin 9.8 g/dL (12.0-16.0); Mean Corp Hgb Conc. 32.7 g/dL (33.0-37.0); Mean Corpuscular Hgb 25.9 pg (27.0-31.0); Mean Corpuscular Volume 79.4 fL (81.0-99.0); Nucleated Red Blood Cells % 0 %; Platelet Count 322 10^3/uL (130-400); Red Blood Cell Count 3.78 10^6/uL (4.20-5.40); White Blood Cell Count 6.1 10^3/uL (4.8-10.8)
[2025-02-06 07:52] LABS: Blood Urea Nitrogen 10 mg/dl (7-17); Calcium 8.9 mg/dl (8.4-10.2); Carbon Dioxide 28 mmol/L (22-30); Chloride 106 mmol/L (98-107); Estimated Creatinine Clearance 85 ml/min; Glucose 87 mg/dl (70-99); Sodium 142 mmol/L (135-145); eGFR > 60.00
[2025-02-06] MEDS: TYLENOL 1000 MG PO (08:19)
[2025-02-06] MEDS: SENOKOT-S PO ×2 (08:19→20:20)
--- NOTE | 2025-02-06 08:54 | W.PN.UPDATE ---
Update Note
Progress Note Update
Spoke with Dr Nova via [facility] [employer]. Abscess may be maturing. Will re-evaluate for possible aspiration or repeat US and drainage.
--- NOTE | 2025-02-06 08:57 | W.PN.HOSP.TC ---
Today's Communication/Plan
-
Possible need for I&D Vs repeat US
c/w IV Abx
Assessment / Plan
Assessment / Plan
Physical Exam
General: Not in acute distress
HEENT: Normocephalic. Moist mucous membranes
Respiratory: Clear to Auscultation Bilaterally
Cardiac: S1/S2 and Regular Rhythm
GI: Soft, Non Tender, Non Distended and Normal Bowel Sounds
Musculoskeletal: No Cyanosis and No Edema
Neuro: AO x 3
Psych:calm
Assessment/Plan
# Left breast Mastitis / Cellulitis of the Left Breast with bloody and purulent drainage prior to arrival -- failed outpatient Keflex
History of Mastitis / Cellulitis of the Left Breast in November 2024 -- at that time did resolved with Keflex
Pain is same. On exam: possible abscess forming/ maturing with Abx coverage
- Culture of discharge so far NGTD
- She had Breast Ultrasound with marked edema but no abscess collection --> discussed with IR, no role for IR intervention but might need to repeat images, surgery to follow.
- Multimodality pain control: Tylenol 3000mg per day in divided doses, Standing Toradol dose and Dilaudid for breakthrough pain
- Bowel regimen as needed while on opioid medicine.
- Added Cefepime
Appreciate Dr. Kamara's and ID doctor help.
Pituitary Adenoma
- Patient states that she was diagnosed in 2022 and completed 3 months of medication to shrink the tumor.
- Did not follow-up after that.
- Elevated prolactin this admission
- No vision changes or evident new symptoms.
Hypothyroidism
- Patient stopped T4 supplementation due to hair changes / thinning.
- Update TFTs noted
Mild Intermittent Asthma
- Stable. Albuterol PRN.
DVT Prophylaxis: SCDs. Lovenox.
Code Status: Full Code
Total time spent to see the patient, examine the patient, review data and lab result, discuss treatment plan with the patient, nursing staff around 55 minutes
Anticipated Discharge: > 48 hours
Subjective/Interval History
-
Date of Service: February 06, 2025
Same pain and swelling in left breast
No fever or chills
Objective Data
-
Labs:
Laboratory Results
02/06/25
06:39
WBC 6.1
Hgb 9.8 L
Hct 30.0 L
Plt Count 322
Sodium 142
Potassium 4.0
Chloride 106
Carbon Dioxide 28
BUN 10
Creatinine 0.7
Glucose 87
Calcium 8.9
Vital Signs:
Vital Signs
Temp Pulse Resp BP Pulse Ox
97.5 F 52 20 109/63 95
02/06/25 07:00 02/06/25 07:00 02/06/25 07:00 02/06/25 07:00 02/06/25 07:00
I&O
02/05/25 02/06/25 02/07/25
06:59 06:59 06:59
Intake Total 1440 / 1440 960 / 960
Balance 1440 / 1440 960 / 960
[2025-02-06 15:00] VITALS: BP 120/70
--- NOTE | 2025-02-06 15:05 | W.PN.ID1 ---
Date of Service
Date of Service: February 06, 2025
Today's Communication
Continue antibiotics.
Assessment / Plan
Left breast cellulitis
Suspected left breast abscess
Benign pituitary tumor
Hypothyroidism
Asthma
Recommendations:
Continue with cefepime for now.
K-pad to the area.
Monitor for clinical improvement.
Await wound culture.
Monitor area of fluctuance; if persists or progresses, may need I&D or aspiration.
Chief Complaint
-: Other (Left breast abscess)
Subjective / Review of Systems
Patient seen and examined. Reports ongoing breast discomfort. Has been using K-pad to the area.
Review of Systems: No Fever
Vital Signs / Physical Exam
Vital Signs
Vital Signs
Temp Pulse Resp BP Pulse Ox
97.5 F 52 20 109/63 95
02/06/25 07:00 02/06/25 07:00 02/06/25 07:00 02/06/25 07:00 02/06/25 07:00
Physical Exam
Constitutional: No Acute Distress, Comfortable and Non-toxic
Eyes: Sclera Anicteric
Pulmonary: Non Labored
Gastrointestinal: Non Distended
Skin: Other (Left breast with purulent drainage from the 12 o'clock position just outside of the areola)
Neurological: Awake and Alert
Psychological: Calm
Objective Data
Lab Data
Lab Results
02/06/25 06:39
02/06/25 06:39
Estimated Creat Clear 85 ml/min 02/06/25 06:39
Lactic Acid 0.7 mmol/L (0.7-2.0) 02/04/25 00:32
Total Bilirubin 0.4 mg/dl (0.2-1.3) 02/03/25 20:02
AST 20 U/L (14-36) 02/03/25 20:02
ALT 27 U/L (0-35) 02/03/25 20:02
Alkaline Phosphatase 83 U/L (38-126) 02/03/25 20:02
Most recent labs reviewed.
Micro Results:
02/04/25 01:23 Wound Culture - Preliminary
Breast - Left Gram Stain - Preliminary
02/04/25 00:32 Blood Culture - Preliminary
Blood/Venous No Growth in 48 hours- Final report to follow
02/04/25 00:32 Blood Culture - Preliminary
Blood/Venous No Growth in 48 hours- Final report to follow
02/04/25 06:24 MRSA Screen - Final
Nose No Methicillin Resistant Staphylococcus aureus isolated.
02/04/25 00:07 Influenza Types A & B (FAUSTO) - Final
Nasal Swab Negative for Influenza A & B, NAAT
Negative results must be combined with clinical observations
and patient history.
Nucleic Acid Amplification test (NAAT)performed on the
[employer] platform.
Imaging:
02/04/2025 Left breast ultrasound: Area of concern demonstrates marked edema in the soft tissues with fluid interspersed, but no discrete fluid collection. There is marked skin thickening. No overt abscess noted. Please see full dictation for
additional detail.
[2025-02-06] MEDS: TYLENOL PO (16:55)
[2025-02-06 23:00] VITALS: BP 141/77
[2025-02-07] MEDS: STERILE WATER FOR INJECTION 10 ML IV ×3 (00:07→12:11)
[2025-02-07] MEDS: TYLENOL 1000 MG PO ×4 (00:08→23:21)
[2025-02-07] MEDS: MAXIPIME 1000 MG IV ×3 (00:08→12:11)
[2025-02-07 07:00] VITALS: BP 118/64
--- NOTE | 2025-02-07 07:58 | W.PN.UPDATE ---
Update Note
Progress Note Update
I would recommend rechecking US today as an abscess may have declared itself.
[2025-02-07 08:02] LABS: % Basophils 0.5 % (0-2); % Eosinophils 3.8 % (0-6); % Immature Granulocytes 0.5 % (0-0.5); % Lymphocytes 25.6 % (20.5-51.1); % Monocytes 8.5 % (1.7-9.3); % Neutrophils 61.1 % (42.2-75.2); Absolute Eosinophils 0.2 10^3/uL (0-0.7); Absolute Lymphocytes 1.6 10^3/uL (1.2-3.4); Absolute Monocytes 0.5 10^3/uL (0.1-0.6); Absolute Neutrophils 3.9 10^3/uL (1.4-6.5); Hematocrit 31.8 % (37.0-47.0); Hemoglobin 10.6 g/dL (12.0-16.0); Mean Corp Hgb Conc. 33.3 g/dL (33.0-37.0); Mean Corpuscular Hgb 25.5 pg (27.0-31.0); Mean Corpuscular Volume 76.4 fL (81.0-99.0); Nucleated Red Blood Cells % 0 %; Platelet Count 296 10^3/uL (130-400); Red Blood Cell Count 4.16 10^6/uL (4.20-5.40); White Blood Cell Count 6.4 10^3/uL (4.8-10.8)
[2025-02-07 08:07] LABS: Blood Urea Nitrogen 10 mg/dl (7-17); Calcium 9.2 mg/dl (8.4-10.2); Carbon Dioxide 26 mmol/L (22-30); Chloride 107 mmol/L (98-107); Estimated Creatinine Clearance 99 ml/min; Glucose 81 mg/dl (70-99); Potassium 4.2 mmol/L (3.5-5.1); Sodium 141 mmol/L (135-145); eGFR > 60.00
--- NOTE | 2025-02-07 08:23 | W.PN.HOSP.TC ---
Today's Communication/Plan
-
Continue Ancef
Assessment / Plan
Assessment / Plan
Physical Exam
General: Not in acute distress
HEENT: Normocephalic. Moist mucous membranes
Respiratory: Clear to Auscultation Bilaterally
Cardiac: S1/S2 and Regular Rhythm
GI: Soft, Non Tender, Non Distended and Normal Bowel Sounds
Musculoskeletal: No Cyanosis and No Edema
Neuro: AO x 3
Psych:calm
Assessment/Plan
# Left breast Mastitis / Cellulitis of the Left Breast with bloody and purulent drainage prior to arrival -- failed outpatient Keflex
History of Mastitis / Cellulitis of the Left Breast in November 2024 -- at that time did resolved with Keflex
- Culture showing rare coag negative staph
- She had Breast Ultrasound with marked edema but no abscess collection --> discussed with IR, no role for IR intervention but might need to repeat images, surgery to follow.
- Repeat ultrasound on February 07, 2025 showed no evidence of fluid or collection
- Multimodality pain control: Tylenol 3000mg per day in divided doses, Standing Toradol dose and Dilaudid for breakthrough pain
- Bowel regimen as needed while on opioid medicine.
- Transition Cefepime to Cefazolin 2 g IV every [address] Kamara's and ID doctor help.
Pituitary Adenoma
- Patient states that she was diagnosed in 2022 and completed 3 months of medication to shrink the tumor.
- Did not follow-up after that.
- Elevated prolactin this admission
- No vision changes or evident new symptoms.
Hypothyroidism
- Patient stopped T4 supplementation due to hair changes / thinning.
- Update TFTs noted
Mild Intermittent Asthma
- Stable. Albuterol PRN.
DVT Prophylaxis: SCDs. Lovenox.
Code Status: Full Code
Anticipated Discharge: 24 - 48 hours
Subjective/Interval History
-
Date of Service: February 07, 2025
Patient was seen and examined. She reported continued discharge from her left breast infection.
Objective Data
-
Labs:
Laboratory Results
02/07/25
07:09
WBC 6.4
Hgb 10.6 L
Hct 31.8 L
Plt Count 296
Sodium 141
Potassium 4.2
Chloride 107
Carbon Dioxide 26
BUN 10
Creatinine 0.6
Glucose 81
Calcium 9.2
Vital Signs:
Vital Signs
Temp Pulse Resp BP Pulse Ox
98.0 F 53 16 118/64 97
02/07/25 07:00 02/07/25 07:00 02/07/25 07:00 02/07/25 07:00 02/07/25 07:00
I&O
02/06/25 02/07/25 02/08/25
06:59 06:59 06:59
Intake Total 960 / 960 960 / 960
Balance 960 / 960 960 / 960
[2025-02-07] MEDS: SENOKOT-S PO ×2 (08:41→20:44)
[2025-02-07] MEDS: DILAUDID 0.5 MG IV ×2 (11:03→23:22)
--- NOTE | 2025-02-07 13:51 | W.PN.ID1 ---
Date of Service
Date of Service: February 07, 2025
Today's Communication
Continue recs. Narrow to cefazolin.
Assessment / Plan
Left breast cellulitis
Suspected left breast abscess
Benign pituitary tumor
Hypothyroidism
Asthma
Recommendations:
Culture revealing rare coag negative staph. No gram-negative's recovered.
Transition to cefazolin 2 g IV every 8 hours
Continue K-pad to the area.
Monitor for clinical improvement.
Monitor area of fluctuance; if persists or progresses, may need I&D or aspiration.
Chief Complaint
-: Other (Left breast abscess)
Subjective / Review of Systems
Patient seen and examined. Still with
Review of Systems: No Fever and No Chills
Vital Signs / Physical Exam
Vital Signs
Vital Signs
Temp Pulse Resp BP Pulse Ox
98.0 F 53 16 118/64 97
02/07/25 07:00 02/07/25 07:00 02/07/25 07:00 02/07/25 07:00 02/07/25 07:00
Physical Exam
Constitutional: No Acute Distress, Comfortable and Non-toxic
Pulmonary: Non Labored
Gastrointestinal: Non Distended
Wound: Other (Left breast area with ongoing drainage and tenderness)
Neurological: Awake and Alert
Psychological: Calm
Objective Data
Lab Data
Lab Results
02/07/25 07:09
02/07/25 07:09
Estimated Creat Clear 99 ml/min 02/07/25 07:09
Lactic Acid 0.7 mmol/L (0.7-2.0) 02/04/25 00:32
Total Bilirubin 0.4 mg/dl (0.2-1.3) 02/03/25 20:02
AST 20 U/L (14-36) 02/03/25 20:02
ALT 27 U/L (0-35) 02/03/25 20:02
Alkaline Phosphatase 83 U/L (38-126) 02/03/25 20:02
Most recent labs reviewed.
Micro Results:
02/04/25 01:23 Wound Culture - Final
Breast - Left Gram Stain - Final
02/04/25 00:32 Blood Culture - Preliminary
Blood/Venous No Growth in 72 hours- Final report to follow
02/04/25 00:32 Blood Culture - Preliminary
Blood/Venous No Growth in 72 hours- Final report to follow
02/04/25 06:24 MRSA Screen - Final
Nose No Methicillin Resistant Staphylococcus aureus isolated.
02/04/25 00:07 Influenza Types A & B ([facility]) - Final
Nasal Swab Negative for Influenza A & B, NAAT
Negative results must be combined with clinical observations
and patient history.
Nucleic Acid Amplification test (NAAT)performed on the
[employer] ID NOW platform.
Imaging:
02/04/2025 Left breast ultrasound: Area of concern demonstrates marked edema in the soft tissues with fluid interspersed, but no discrete fluid collection. There is marked skin thickening. No overt abscess noted. Please see full dictation for
additional detail.
[2025-02-07 15:00] VITALS: BP 113/67
--- NOTE | 2025-02-07 16:09 | W.PN.UPDATE ---
Update Note
Progress Note Update
US today shows no evidence of fluid or collection. Will continue to monitor progress of skin.
--- NOTE | 2025-02-07 16:23 | CM ---
CM reviewed chart, ID following, patient remains on IV antibiotics, watch for home IV antibiotic needs- patient currently not insured.
CM will continue to follow for all discharge planning needs.
Plan; home with spouse, watch for home IV antibiotic needs.
[2025-02-07] MEDS: ANCEF 10 IV ×2 (16:33→23:22)
[2025-02-07 23:42] VITALS: BP 123/62
[2025-02-08 07:00] VITALS: BP 126/76
[2025-02-08] MEDS: ANCEF 10 IV ×3 (08:44→23:00)
[2025-02-08] MEDS: SENOKOT-S PO ×2 (08:44→19:44)
[2025-02-08] MEDS: TYLENOL 1000 MG PO ×3 (08:44→23:00)
[2025-02-08 09:02] LABS: Hematocrit 31.7 % (37.0-47.0); Hemoglobin 10.4 g/dL (12.0-16.0); Mean Corp Hgb Conc. 32.8 g/dL (33.0-37.0); Mean Corpuscular Hgb 25.7 pg (27.0-31.0); Mean Corpuscular Volume 78.5 fL (81.0-99.0); Mean Platelet Volume 11.1 fL (7.4-10.4); Platelet Count 306 10^3/uL (130-400); Red Blood Cell Count 4.04 10^6/uL (4.20-5.40); Red Cell Dist. Width 13.1 % (11.5-14.5); White Blood Cell Count 6.2 10^3/uL (4.8-10.8)
[2025-02-08 09:21] LABS: Blood Urea Nitrogen 10 mg/dl (7-17); Calcium 9.4 mg/dl (8.4-10.2); Carbon Dioxide 30 mmol/L (22-30); Chloride 106 mmol/L (98-107); Estimated Creatinine Clearance 99 ml/min; Glucose 82 mg/dl (70-99); Potassium 4.2 mmol/L (3.5-5.1); Sodium 142 mmol/L (135-145); eGFR > 60.00
--- NOTE | 2025-02-08 11:12 | CM ---
CM reviewed chart, patient seen bedside, reports no concerns/needs to CM at this time. Patient remains on IV antibiotics. Will continue to follow for all discharge planning needs.
Plan; home no needs.
[2025-02-08] MEDS: DILAUDID 0.5 MG IV ×2 (14:02→23:01)
--- NOTE | 2025-02-08 14:17 | W.PN.HOSP.TC ---
Today's Communication/Plan
-
Continue antibiotics
Appreciate ID
Assessment / Plan
Assessment / Plan
Physical Exam
General: Not in acute distress
HEENT: Normocephalic. Moist mucous membranes
Respiratory: Clear to Auscultation Bilaterally
Cardiac: S1/S2 and Regular Rhythm
GI: Soft, Non Tender, Non Distended and Normal Bowel Sounds
Musculoskeletal: No Cyanosis and No Edema
Neuro: AO x 3
Psych:calm
Assessment/Plan
# Left breast Mastitis / Cellulitis of the Left Breast with bloody and purulent drainage prior to arrival -- failed outpatient Keflex
History of Mastitis / Cellulitis of the Left Breast in November 2024 -- at that time did resolved with Keflex
- Wound culture showed rare coagulase negative staph
- She had Breast Ultrasound with marked edema but no abscess collection --> discussed with IR, no role for IR intervention but might need to repeat images, surgery to follow.
- Repeat ultrasound on February 07, 2025 showed no evidence of fluid or collection
- Multimodality pain control: Tylenol 3000mg per day in divided doses, Standing Toradol dose and Dilaudid for breakthrough pain
- Bowel regimen as needed while on opioid medicine.
- Cefazolin 2 g IV every 8 hours. Previously was on Cefepime.
Appreciate Dr. Kamara's and ID doctor help.
Pituitary Adenoma
- Patient states that she was diagnosed in 2022 and completed 3 months of medication to shrink the tumor.
- Did not follow-up after that.
- Elevated prolactin this admission
- No vision changes or evident new symptoms.
Hypothyroidism
- Patient stopped T4 supplementation due to hair changes / thinning.
- Update TFTs noted
Mild Intermittent Asthma
- Stable. Albuterol PRN.
DVT Prophylaxis: SCDs. Lovenox.
Code Status: Full Code
Anticipated Discharge: 24 - 48 hours
Subjective/Interval History
-
Date of Service: February 08, 2025
Patient was seen and examined. She was doing okay, still with some drainage, affected area appears more bumpy to her.
Objective Data
-
Labs:
Laboratory Results
02/08/25
08:22
WBC 6.2
Hgb 10.4 L
Hct 31.7 L
Plt Count 306
Sodium 142
Potassium 4.2
Chloride 106
Carbon Dioxide 30
BUN 10
Creatinine 0.6
Glucose 82
Calcium 9.4
Vital Signs:
Vital Signs
Temp Pulse Resp BP Pulse Ox
98.4 F 49 16 126/76 98
02/08/25 07:00 02/08/25 07:00 02/08/25 07:00 02/08/25 07:00 02/08/25 07:00
I&O
02/07/25 02/08/25 02/09/25
06:59 06:59 06:59
Intake Total 960 / 960 720 / 720
Balance 960 / 960 720 / 720
[2025-02-08 15:00] VITALS: BP 118/65
--- NOTE | 2025-02-08 15:08 | W.PN.UPDATE ---
Update Note
Progress Note Update
The patient was examined today and there are no fluctuant superficial areas. She is feeling more 'lumps' in her breast, but
the induration has sigificantly improved. Would continue local wound care with non-adhesive dressing, we could also
consider Silvadene to the excoriated skin.
Will see again if requested. Needs mammo as outpatient when symptoms resolve.
[2025-02-08 23:04] VITALS: BP 127/76
[2025-02-09 07:00] VITALS: BP 132/70
[2025-02-09 08:01] LABS: Hematocrit 32.7 % (37.0-47.0); Hemoglobin 10.6 g/dL (12.0-16.0); Mean Corp Hgb Conc. 32.4 g/dL (33.0-37.0); Mean Corpuscular Hgb 25.4 pg (27.0-31.0); Mean Corpuscular Volume 78.4 fL (81.0-99.0); Mean Platelet Volume 10.8 fL (7.4-10.4); Platelet Count 327 10^3/uL (130-400); Red Blood Cell Count 4.17 10^6/uL (4.20-5.40); Red Cell Dist. Width 13.1 % (11.5-14.5); White Blood Cell Count 6.4 10^3/uL (4.8-10.8)
[2025-02-09 08:44] LABS: Blood Urea Nitrogen 12 mg/dl (7-17); Calcium 9.3 mg/dl (8.4-10.2); Carbon Dioxide 28 mmol/L (22-30); Chloride 105 mmol/L (98-107); Estimated Creatinine Clearance 85 ml/min; Glucose 88 mg/dl (70-99); Potassium 4.2 mmol/L (3.5-5.1); Sodium 142 mmol/L (135-145); eGFR > 60.00
[2025-02-09] MEDS: ANCEF 10 IV (09:24)
[2025-02-09] MEDS: TYLENOL 1000 MG PO (09:24)
[2025-02-09] MEDS: SENOKOT-S PO (09:24)
--- NOTE | 2025-02-09 10:39 | W.PN.ID1 ---
Date of Service
Date of Service: February 09, 2025
Today's Communication
Change to oral keflex.
Assessment / Plan
Left breast cellulitis
Suspected left breast abscess
Benign pituitary tumor
Hypothyroidism
Asthma
Recommendations:
Culture revealing rare coag negative staph. No gram-negative's recovered.
Area remains indurated, but no fluctuance or significant drainage. Less tenderness.
Continue heating pad / warm compresses.
Change to oral keflex 500 mg QID, to continue for an additional 10 days.
Chief Complaint
-: Other (Left breast abscess)
Subjective / Review of Systems
Reports feeling better. Less discomfort.
Review of Systems: No Fever and No Chills
Vital Signs / Physical Exam
Vital Signs
Vital Signs
Temp Pulse Resp BP Pulse Ox
98.1 F 49 16 132/70 98
02/09/25 07:00 02/09/25 07:00 02/09/25 07:00 02/09/25 07:00 02/09/25 07:00
Physical Exam
Constitutional: No Acute Distress, Comfortable and Non-toxic
Eyes: Sclera Anicteric
Pulmonary: Non Labored
Skin: Other (left breast area with induration but no fluctuance. No drainage.)
Neurological: Awake and Alert
Psychological: Calm
Objective Data
Lab Data
Lab Results
02/09/25 07:14
02/09/25 07:14
Estimated Creat Clear 85 ml/min 02/09/25 07:14
Lactic Acid 0.7 mmol/L (0.7-2.0) 02/04/25 00:32
Total Bilirubin 0.4 mg/dl (0.2-1.3) 02/03/25 20:02
AST 20 U/L (14-36) 02/03/25 20:02
ALT 27 U/L (0-35) 02/03/25 20:02
Alkaline Phosphatase 83 U/L (38-126) 02/03/25 20:02
Most recent labs reviewed.
Micro Results:
02/04/25 00:32 Blood Culture - Final
Blood/Venous No Growth - Final Report
02/04/25 00:32 Blood Culture - Final
Blood/Venous No Growth - Final Report
02/04/25 01:23 Wound Culture - Final
Breast - Left Gram Stain - Final
02/04/25 06:24 MRSA Screen - Final
Nose No Methicillin Resistant Staphylococcus aureus isolated.
02/04/25 00:07 Influenza Types A & B ([facility]) - Final
Nasal Swab Negative for Influenza A & B, NAAT
Negative results must be combined with clinical observations
and patient history.
Nucleic Acid Amplification test (NAAT)performed on the
[employer] platform.
Imaging:
02/04/2025 Left breast ultrasound: Area of concern demonstrates marked edema in the soft tissues with fluid interspersed, but no discrete fluid collection. There is marked skin thickening. No overt abscess noted. Please see full dictation for
additional detail.
Care Review
Plan reviewed with: Physician (Hospitalist)
--- NOTE | 2025-02-09 13:46 | W.PN.HOSP.TC ---
Today's Communication/Plan
-
Discharge today
Assessment / Plan
Assessment / Plan
Physical Exam
General: Not in acute distress
HEENT: Normocephalic. Moist mucous membranes
Respiratory: Clear to Auscultation Bilaterally
Cardiac: S1/S2 and Regular Rhythm
GI: Soft, Non Tender, Non Distended and Normal Bowel Sounds
Musculoskeletal: No Cyanosis and No Edema
Neuro: AO x 3
Psych:calm
Assessment/Plan
# Left breast Mastitis / Cellulitis of the Left Breast with bloody and purulent drainage prior to arrival -- failed outpatient Keflex
History of Mastitis / Cellulitis of the Left Breast in November 2024 -- at that time did resolved with Keflex
- Wound culture showed rare coagulase negative staph
- She had Breast Ultrasound with marked edema but no abscess collection --> discussed with IR, no role for IR intervention but might need to repeat images, surgery to follow.
- Repeat ultrasound on February 07, 2025 showed no evidence of fluid or collection
- Multimodality pain control: Tylenol 3000mg per day in divided doses, Standing Toradol dose and Dilaudid for breakthrough pain
- Bowel regimen as needed while on opioid medicine.
- Cefazolin 2 g IV every 8 hours. Previously was on Cefepime. On discharge, change to oral Keflex 500 mg QID, to continue for an additional 10 days.
- Continue heating pad / warm compresses.
- Follow-up with Dr. Kamara after discharge
Appreciate Dr. Kamara's and ID doctor help.
Pituitary Adenoma
Prolactin this February 2025 Hospitalization is 75.2
- Patient states that she was diagnosed in 2022 and completed 3 months of medication to shrink the tumor.
- Did not follow-up after that.
- Elevated prolactin this admission
- No vision changes or evident new symptoms.
- Follow-up with PCP/endocrinology
Hypothyroidism
- Patient stopped T4 supplementation due to hair changes / thinning.
- Update TFTs noted
Mild Intermittent Asthma
- Stable. Albuterol PRN.
DVT Prophylaxis: SCDs. Lovenox.
Code Status: Full Code
More than 30 minutes spent in discharge including
Final examination of the patient
Summarizing hospital stay
Instructions for continuing care to all relevant caregivers
Preparation of discharge records, prescriptions, and referral forms
Total time spent (in minutes): 38
Anticipated Discharge: Today
Subjective/Interval History
-
Date of Service: February 09, 2025
Patient was seen and examined. She reported feeling okay, no new symptoms, still with the lesion with bumpy areas per her.
Objective Data
-
Labs:
Laboratory Results
02/09/25
07:14
WBC 6.4
Hgb 10.6 L
Hct 32.7 L
Plt Count 327
Sodium 142
Potassium 4.2
Chloride 105
Carbon Dioxide 28
BUN 12
Creatinine 0.7
Glucose 88
Calcium 9.3
Vital Signs:
Vital Signs
Temp Pulse Resp BP Pulse Ox
98.1 F 49 16 132/70 98
02/09/25 07:00 02/09/25 07:00 02/09/25 07:00 02/09/25 07:00 02/09/25 07:00
I&O
02/08/25 02/09/25 02/10/25
06:59 06:59 06:59
Intake Total 720 / 720 720 / 720
Balance 720 / 720 720 / 720
--- NOTE | 2025-02-09 14:28 | W.DCSUMMARY ---
Discharge Summary
Discharge Data
Date of Admission: 02/04/25
Date of Discharge: 02/09/25
Total time spent discharging patient (in min): 38
-
Pending Results: No
Hospital Course
44 y/o female with past medical history significant for pituitary adenoma and thyroid disease who presented complaining of pain, swelling and redness of the left breast. Patient was started on intravenous Vancomycin. Breast surgeon Dr. Brit Kamara
was consulted. Initial ultrasound study showed no discreet abscess; interventional radiology was consulted and mentioned there was no role for them. Later Cefepime antibiotic was added. Infectious Disease physician was consulted. Later there was a
concern that patient may be having a maturing abscess. Patient's antibiotic was later to changed to Ancef. The wound culture showed Culture showing rare coag negative staph. Repeat ultrasound of the left breast showed no evidence of fluid or
collection. Patient was stable for discharge with oral antibiotics with close follow-up with breast surgeon outpatient.
Discharge Plan
-
Patient Disposition: Home (Routine Discharge)
Discharge Diagnosis/Procedures: Left breast cellulitis
Left breast soft tissue edema on ultrasound
Benign pituitary tumor
Hypothyroidism
Asthma
Condition: Good
Diet: As tolerated
Activity: As tolerated
Referrals:
NONE,* [Family Provider] -
Brit Kamara MD [Active] - in less than 1 week (Hospital follow-up of left breast infection)
Additional Discharge Medication Instructions: Cephalexin (500 mg QID for 10 more days) and Acetaminophen are new medications.
Prescriptions:
New
cephalexin 500 mg tablet
500 mg PO QID 10 Days Qty: 40 0RF
acetaminophen [Tylenol Extra Strength] 500 mg Tablet
1,000 mg PO Q8H PRN (Reason: fever or pain) Qty: 20 0RF
Continued
ibuprofen 200 mg Tablet
800 mg PO Q6H PRN (Reason: Pain)
albuterol sulfate 90 mcg/actuation Hfa Aerosol Inhaler
2 puff INHALATION Q6H PRN (Reason: SOB)
PNV cmb#95-ferrous fumarate-FA [] 28 mg iron- 800 mcg Tablet
1 tab PO DAILY
Discharge Orders:
Discharge Patient (As Directed); Ordered 02/09/25
Ordered By: Gurinder Soares
Discharge Date and Time
Discharge Date/Time: 02/09/25 15:50
Print Language: GREENLANDIC
--- NOTE | 2025-02-09 14:34 | CM ---
Addendum entered by Victor Manuel Noyola 02/09/25 15:00:
CM provided the pt with 2 coupons for Keflex with $16.80 each coupon for 28 capsules. Pt is aware to get it from [facility] pharmacy today.
Original Note:
CM following re: discharge planning.
Reviewed pt's chart, met with [pt.
Discharge order noted. Pt is aware and she stated her SO will transport her home after work.
JJ provided the pt with GoodRX coupon for Cephalexin 500 mg (28 capsules) at [facility] and explained how to use. pt will print another coupon for additional capsules if needed. pt expressed her appreciation.
D/C plan: home with no after care VN needs. SO to transport.
[2025-02-09 15:00] VITALS: BP 124/69
== END 2025-02-09 15:50 | disposition home or self-care (01) | DRG 601 ==
LOC: 4 WEST ACU 00:42
PROVIDERS: Emergency Medicine; Physician Assistant; ADMITTING PHYSICIAN Hospitalist; ATTENDING PHYSICIAN Hospitalist; CONSULT PHYSICIAN Student in an Organized Health Care Education/Training Program; CONSULT PHYSICIAN Surgery; EMERGENCY PHYSICIAN Student in an Organized Health Care Education/Training Program
DX: N61.0 Mastitis without abscess (principal); E03.9 Hypothyroidism, unspecified; J45.20 Mild intermittent asthma, uncomplicated; N64.53 Retraction of nipple; B95.8 Unspecified staphylococcus as the cause of diseases classified elsewhere; Z86.018 Personal history of other benign neoplasm; Z59.71 Insufficient health insurance coverage; Z79.899 Other long term (current) drug therapy
CPT/HCPCS: 71046; 76642; 80048; 80053; 83605; 84146; 84439; 84443; 84703; 85025; 85027; 87040; 87070; 87147; 87205; 87502; 87811; 99285

== ENCOUNTER 2025-04-15 01:47 | Inpatient (IN) | payer OTHER, SELFPAY ==
[2025-04-14 21:21] VITALS: BP 139/85
[2025-04-14 21:57] LABS: Urine Character Clear (Clear)
[2025-04-14 21:58] LABS: Hematocrit 32.9 % (37.0-47.0); Hemoglobin 10.9 g/dL (12.0-16.0); Mean Corp Hgb Conc. 33.1 g/dL (33.0-37.0); Mean Corpuscular Volume 76.5 fL (81.0-99.0); Nucleated Red Blood Cells % 0 %; Platelet Count 353 10^3/uL (130-400); Red Cell Dist. Width 13.7 % (11.5-14.5)
[2025-04-14 22:11] LABS: ALT (SGPT) 114 U/L (0-35); AST (SGOT) 53 U/L (14-36); Albumin 4.4 g/dl (3.5-5.0); Alkaline Phosphatase 96 U/L (38-126); Blood Urea Nitrogen 8 mg/dl (7-17); Calcium 9.4 mg/dl (8.4-10.2); Carbon Dioxide 27 mmol/L (22-30); Chloride 105 mmol/L (98-107); Glucose 113 mg/dl (70-99); Potassium 3.7 mmol/L (3.5-5.1); Sodium 139 mmol/L (135-145); Total Protein 7.9 g/dl (6.3-8.2); eGFR > 60.00
[2025-04-14 22:18] LABS: Urine Red Blood Cell 0-2 /HPF (0-2); Urine Squamous Cell 16-20 /LPF (Few)
[2025-04-14 22:54] VITALS: BP 122/72
[2025-04-14 23:00] VITALS: BP 124/75
[2025-04-14] MEDS: TYLENOL 650 MG PO (23:33)
[2025-04-14] MEDS: TORADOL 15 MG IV (23:35)
--- NOTE | 2025-04-14 23:35 | ED.GENMED ---
History of Present Illness
General
Chief Complaint: Breast Problem
Source: patient
Exam Limitations: none
Time Seen by Provider: 04/14/25 23:20
Nursing documentation reviewed up to this point in time: agreed with
History of Present Illness
History of Present Illness:
see mdm
Past History
Past History
ED Past Medical History: Asthma and Other (Pituitary tumor)
Social History
Tobacco: Non-smoker
Alcohol: None
Drug: None
Personal: Single
Review of Systems
Review of Systems
Allergies reviewed?: Yes
All Other Systems: Not applicable
Phy Exam
Physical Exam
Physical Exam:
GENERAL: Alert , in no apparent distress
EYE: pupils equal and reactive
NECK: Supple
ENT: o/p clr, mmm.
CARDIAC: Tachycardia
LUNGS: Clear breath sounds bilaterally, no acute respiratory distress, no wheezes/rales/rhonchi
Patient has moderate area of erythema covering most of her left breast, warmth, tenderness, and induration involving the areola
The nipple is retracted, I cannot reproduce any drainage
ABDOMEN: Soft, without focal tenderness, no r/g, no cvat, normal bowel sounds
SKIN: Warm and dry, skin intact.
MUSCULOSKELETAL: No edema, well perfused. neg elyse's sign
PSYCH: Normal and appropriate interaction.
Sepsis
Sepsis Screening
Sepsis Assessment: Sepsis (at 0020)
Sepsis Screen
Sepsis Screen: Sepsis
Date: 04/15/25
Time: 03:51
Course
Orders/Labs/Results
Orders:
Orders
04/14/25 21:47
Lactic Acid Q4H
Comment: ON ICE, CANCEL 2ND ORDER IF FIRST LACTIC ACID LEVEL <2
Urinalysis Reflex To Culture Urgent
Date Specimen was Collected: 04/14/25
Time Specimen was Collected: 21:28
Urine Microscopic Reflex Cult Urgent
Urine Culture Urgent
ABHINAV Source: U
Specimen Description:
Date Specimen was Collected: 04/14/25
Time Specimen was Collected: 21:28
04/14/25 21:49
Complete Blood Count/With Diff Urgent
Comprehensive Metabolic Panel Urgent
Blood Culture Q20M
ABHINAV Source: Blood/Venous
Specimen Description:
Comment: Urgent from separate sites. If patient screens positive for possible sepsis
04/14/25 22:50
Blood Culture Q20M
ABHINAV Source: Blood/Venous
Specimen Description:
Comment: Urgent from separate sites. If patient screens positive for possible sepsis
04/14/25 23:19
Acetaminophen [Tylenol] 975 mg .ROUTE .STK-MED ONE
Ketorolac [Toradol] 15 mg .ROUTE .STK-MED ONE
04/14/25 23:32
Acetaminophen [Tylenol] 650 mg PO NOW STA
04/14/25 23:34
Ketorolac [Toradol] 15 mg IV NOW STA
04/14/25 23:37
0.9% Sodium Chloride 1000 ml [Nss] 1,000 ml IV BOLUS
04/15/25 00:04
Vancomycin [Vancocin] 1,500 mg 0.9% Sodium Chloride 500 ml [Nss] 500 ml IV NOW
04/15/25 01:19
Admit/Transfer Patient As Directed
Co-Sign Provider:
Level of Care: Inpatient admission
Assign to:: Medical/Surgical
Physician / Group: Jose
Diagnosis: L Breast Cellulitis / Abscess
Reason for Hospitalization: L Breast Cellulitis / Abscess
Expected length of stay greater than two midnights?: Yes
ELOS- Estimated Length of Stay in days: 3
I certify the patient meets the requirements for IP care: Yes
PRN Pain Medication Management As Directed
May give lesser potent ordered pain med per pt: Yes
preference::
Protocol:: Medication orders for pain may be administered in a
manner that supports deferring to patient preference
when the pt is:
- Requesting an ordered lesser potent pain medication.
Least to most potent pain medications are defined
as: acetaminophen < NSAID < tramadol < opioids
(morphine, oxycodone, hydromorphone).
- Requesting a lesser dose of the same medication IF
ORDERED.
- Requesting a less intrusive route of administration
if both routes are prescribed by the provider (PO <
IV).
04/15/25 01:25
Code Status As Directed
Resuscitation Status: Full Code
04/15/25 02:51
Acetaminophen [Tylenol] 650 mg PO Q4HPRN PRN
HYDROmorphone [Dilaudid] 0.5 mg IV Q4HPRN PRN
Ketorolac [Toradol] 15 mg IV Q6HPRN PRN
Lactated Ringers [Lr] 1,000 ml IV 150 mls/hr
04/15/25 02:51
Breast Surgery Consult Routine
Consulting Provider: Brit Kamara.
Was physician already notified: No
Reason for Consult: L Breast Cellulitis / Abscess
Consult Notification Routine
Specialty to Notify: Breast Surgery
Ferritin Routine
Iron Routine
Total Iron Binding Routine
Activity As Directed
Activity Level: Ambulate
I/O [Intake/ Output] As Directed
Frequency: Per unit guidelines
Pneumatic Compression Sleeves As Directed
Type: Knee high
Vital Signs As Directed
Frequency: Per unit guidelines
Oxygen Therapy [O2 Therapy] [RESP] Routine
Titrate/Wean O2 to maintain O2 sat greater than (%): 94
DX Deep Vein Thrombosis Video Routine
04/15/25 04:00
Cefepime HCl [Maxipime] 2,000 mg IV Q8H
04/15/25 Breakfast
Regular
Basic Metabolic Panel IN AM
Complete Blood Count/No Diff IN AM
MR Brain W/o & With Contrast IN AM
Comment: Attention to the sella / pituitary
Reason For Exam: Pituitary adenoma
Recent pill cam endoscopy?: No
US Breast Left Ltd IN AM
Comment:
Reason For Exam: Cellulitis / Eval for Abscess or Collection
04/15/25 18:00
Enoxaparin Sodium [Lovenox] 40 mg SC QPM
Abnormal Lab Results
04/14/25 04/14/25
21:47 21:49
WBC 12.2 H 10^3/uL
(4.8-10.8)
Hgb 10.9 L g/dL
(12.0-16.0)
Hct 32.9 L %
(37.0-47.0)
MCV 76.5 L fL
(81.0-99.0)
MCH 25.3 L pg
(27.0-31.0)
Abs Immat Gran (auto) 0.1 H 10^3/uL
(0-0.05)
Absolute Neuts (auto) 9.3 H 10^3/uL
(1.4-6.5)
Absolute Monos (auto) 1.3 H 10^3/uL
(0.1-0.6)
Neutrophils % 75.9 H %
(42.2-75.2)
Lymphocytes % 11.0 L %
(20.5-51.1)
Monocytes % 10.2 H %
(1.7-9.3)
Glucose 113 H mg/dl
(70-99)
AST 53 H U/L
(14-36)
ALT 114 H U/L
(0-35)
Leukocyte Esterase Rfl 1+ A
(Negative)
Urine WBC (Reflex) 11-15 A /HPF
(0-5)
Urine Bacteria (Reflex) Few A
(Negative)
04/14/25 21:49
04/14/25 21:49
Vital Signs
Initial and Last Documented VS:
Initial Vital Signs
Temp Pulse Resp BP Pulse Ox
39.1 C H 117 16 139/85 98
04/14/25 21:21 04/14/25 21:21 04/14/25 21:21 04/14/25 21:21 04/14/25 21:21
Last Documented Vital Signs
Temp Pulse Resp BP Pulse Ox
36.6 C 83 18 112/74 98
04/15/25 02:51 04/15/25 02:51 04/15/25 02:51 04/15/25 02:51 04/15/25 02:51
MDM/Problems Addressed
Differential Diagnosis Includes:
See MDM
MDM/Problems Addressed:
Note:
CHIEF COMPLAINT(S)
- Fever
- Breast pain and swelling
HISTORY OF PRESENT ILLNESS
The patient is a 44-year-old female who presents with fever and breast pain. She has a history of a previous breast issue for which she was admitted about a month ago. At that time, she was evaluated for a breast cellulitis versus abscess but was
treated with intravenous antibiotics and pain management, which allowed her to go home with oral medications. However, the issue never fully resolved, as the swelling and drainage persisted somewhat, although the pain was manageable until recently.
Over the last two days, the patient reports increased breast pain, redness, and firmness. She also reports the onset of fever and feeling cold and occasionally having shaking chills. She denies any vomiting, sore throat, urinary discomfort, or
abdominal pain. she does occasionally feel lightheaded with standing. She reports no swelling resolution following her menstrual cycle, which commenced after she noted yellow nipple discharge and discoloration.
The patients history reveals a previous breast ultrasound, but there has been no mammogram or biopsy as of the last visit. She has not followed up with a specialist after her discharge, potentially contributing to the current escalation of symptoms.
REVIEW OF SYSTEMS
- Constitutional: Fever, feeling cold
- Breast: Pain, swelling, redness, firm nodule, intermittent leakage
- Neurological: Sensation of being off-balance, sharp pain, body tremors
- Genitourinary: Previous yellow nipple discharge
- No coughing, sore throat, urinary discomfort, or abdominal pain noted
PHYSICAL EXAM
- No specific physical exam findings shared
- Nursing notes reviewed and vital signs reviewed
PLAN
- Admission for further evaluation and management of the breast condition
- Review any antibiotics given during previous hospital visit
DIFFERENTIAL DIAGNOSIS
The Differential Diagnosis includes, in no particular order and is not limited to:
1. Breast abscess
2. Mastitis
3. Breast cancer
4. Inflammatory breast cancer
5. Hormonal changes related to menstrual cycle
6. Galactorrhea
7. Fibroadenoma
8. Intraductal papilloma
9. Duct ectasia
10. Cellulitis
44-year-old female with episodes of left breast cellulitis previously presents for for acute right-sided pain, redness, induration, drainage from her nipple 2 days ago, currently febrile, reporting shaking chills, meet sepsis criteria with a large
area of erythema and induration of the left breast. Will require breast surgery consultation and imaging, will start with IV antibiotics empirically. Previous culture grew out coagulase-negative staph
*Pulse Oximetry
SaO2: 96
Oxygen Mode of Delivery: Room air
Patient hypoxic: no
*Critical Care Note
Total Time (30-74mins, 75-104mins- exclusive of procedures): Not Applicable
ED Attending Note
-
Portions of this chart may have been created with voice recognition software.� Occasional wrong word or��sound alike� substitutions may have occurred due to the inherent limitations of voice recognition software.
Discharge Plan
Departure
Patient Disposition: Admit
Date of Disposition: 04/14/25
Time of Disposition: 23:39
Admit to: Med/Surg
Presentation/result/management discussed w/ accepting MD/DO: Hospitalist
Condition: Fair
Covid-19: Not Applicable
Discharge Problem:
Sepsis, Cellulitis of breast
Interventions
Interventions:
*Risk Screen - Suicide Last Done: 04/15/25 03:06
*General Assessment Last Done: 04/15/25 00:00
*Neglect/Abuse Screening Last Done: 04/14/25 21:21
*ED- Fall Risk Assessment Last Done: 04/15/25 00:00
*ED COVID-19 Vaccine History Last Done: 04/15/25 00:00
*Nursing Disposition Last Done: 04/15/25 02:30
ED-Skin Assessment Last Done: 04/14/25 23:00
Discharge Date and Time
Discharge Date/Time: 04/15/25 02:47
[2025-04-14 23:49] VITALS: BMI 30.4
[2025-04-15] VITALS (8 sets, daily range): BP systolic 87–130; BP diastolic 63–77; BMI 31.0
[2025-04-15] MEDS: NSS 1000 IV (00:48)
[2025-04-15] MEDS: VANCOCIN 530 MG IV (00:48)
--- NOTE | 2025-04-15 01:28 | HPS.HSE ---
Family Physician
-
Family Physician: * NONE
Chief Complaint
-
L Breast Pain and Discharge
History of Present Illness
Patient is a 44y F with PMH significant for thyroid disease and pituitary adenoma who presents to ED complaining of L breast pain, swelling and discharge. Patient initially developed symptoms in November of this year. This improved with
outpatient abx. She was then hospitalized in February with recurrent / worse symptoms. She was evaluated for suspected collection / abscess; however, no drainable collection was identified and no procedure performed. She was treated with IV abx and
transitioned to oral Keflex. Patient states that her symptoms improved, but never fully resolved. She reports intermittent firmness / 'lumps' in the L breast. She reports discharge medial to the nipple that varies in color, consistency,
frequency. She describes mostly clear, sticky discharge. Occasional black / green discharge. For the past two days, discharge has been milky / white appearing.
Today she had a headache and fatigue. She noted increased pain in the L breast compared to usual and presented to the ED for further evaluation.
Patient notes that she has not followed up with Dr. Kamara since her last hospitalization.
Medical History
Past Medical History
Past Medical History: Reports Other
Additional Past Medical History:
Pituitary Adenoma
Hypothyroidism
Asthma
Past Surgical History: Reports Other
Additional Past Surgical History:
x 2
Social History
Tobacco: Non-smoker
Alcohol: Occasional
Drug: None
Family History
Family History: Other (MGM: Breast Cancer Mother: Thyroid Disease, MS)
Allergies / Home Medications
Allergies reflects when Allergies were last updated in [facility].
Home Medications with original date entered in [facility]
Allergy/Medication List:
Allergies
Allergy/AdvReac Type Severity Reaction Status Date / Time
No Known Allergies Allergy Verified 02/03/25 20:00
Home Medications
albuterol sulfate 90 mcg/actuation aerosol inhaler 2 puff inhalation Q6H PRN SOB 02/04/25
ibuprofen 200 mg tablet 800 mg PO Q6H PRN Pain 02/04/25
vit no.95-ferrous fumarate 28 mg-folic acid 800 mcg tablet () 1 tab PO DAILY 02/04/25
Review of Systems
-
History Source: Patient
A 12 point ROS was completed and negative except as noted: Yes
Constitutional: Reports Fatigue; Denies Fever or Chills
EENT: Denies Sore Throat
Respiratory: Denies Cough or Trouble Breathing
Cardiac: Denies Chest Pain or Palpitations
Abdomen/GI: Denies Abdominal Pain, Nausea, Vomiting or Diarrhea
: Denies Dysuria or Frequency
Musculoskeletal: Denies Edema
Skin: Reports Other (Pain, swelling, redness L breast. Varying types / frequency of discharge.)
Neurological: Reports Headache; Denies Dizzy
Psych: Denies Depression or Anxiety
Physical Exam
Vital Signs
Vital Signs
Temp Pulse Resp BP Pulse Ox
99.7 F 117 16 122/63 97
04/15/25 01:05 04/14/25 21:21 04/14/25 21:21 04/15/25 00:00 04/15/25 01:00
Physical Exam
General: Other (44y F in mild distress due to pain in the L breast.)
HEENT: Moist mucous membranes and PERRLA
Respiratory: Clear; No Wheezes, Rales or Rhonchi
Cardiac: S1/S2 and Regular Rhythm; No Murmur
Breast: Other (Induration / firmness of the L breast. Few small openings medial to the areola with no discharge at present. Pos tenderness. ? lateral area of fluctuance / skin discoloration.)
GI: Soft, Non Tender, Non Distended and Normal Bowel Sounds
Musculoskeletal: No Clubbing, No Cyanosis and No Edema
Neuro: AO x 3
Laboratory Results
-
04/14/25 21:49
04/14/25 21:49
Laboratory Results
Lactic Acid Cancelled 04/15/25 01:30
Total Bilirubin 0.6 mg/dl (0.2-1.3) 04/14/25 21:49
AST 53 U/L (14-36) H 04/14/25 21:49
ALT 114 U/L (0-35) H 04/14/25 21:49
Alkaline Phosphatase 96 U/L (38-126) 04/14/25 21:49
Impression/Plan
-
A/P: Patient is a 44y F with PMH significant for asthma and pituitary adenoma who presents to ED c/o pain, swelling and redness in the L breast for about 2 weeks.
Mastitis / Cellulitis of the Left Breast
- Admit for further evaluation and treatment.
- IV cefepime.
- Breast Surgery evaluation for additional recommendations.
- Supportive care including pain control, etc.
- Follow for clinical improvement.
- ? persistent / recurrent symptoms since last admission.
- Check US for evidence of drainable abscess / collection.
Pituitary Adenoma
- Unclear details. Patient states that she was diagnosed in 2022 and completed 3 months of medication to shrink the tumor.
- Did not follow-up after that.
- She does complain of recent headaches today.
- Note that prolactin level checked in February was moderately elevated at 75.
- Check MRI for further evaluation.
Mild Intermittent Asthma
- Stable. Albuterol PRN.
DVT Prophylaxis: SCDs
Code Status: Full
[2025-04-15] MEDS: LR 1000 IV ×2 (03:35→14:31)
[2025-04-15] MEDS: DILAUDID 0.5 MG IV ×5 (03:35→22:59)
[2025-04-15] MEDS: STERILE WATER FOR INJECTION 10 ML IV ×3 (04:36→19:58)
[2025-04-15] MEDS: MAXIPIME 2000 MG IV ×3 (04:36→19:58)
[2025-04-15 07:59] LABS: Hematocrit 29.1 % (37.0-47.0); Hemoglobin 9.5 g/dL (12.0-16.0); Mean Corp Hgb Conc. 32.6 g/dL (33.0-37.0); Mean Corpuscular Volume 77.6 fL (81.0-99.0); Platelet Count 280 10^3/uL (130-400); Red Cell Dist. Width 13.5 % (11.5-14.5)
[2025-04-15 08:19] LABS: Blood Urea Nitrogen 9 mg/dl (7-17); Calcium 8.0 mg/dl (8.4-10.2); Carbon Dioxide 23 mmol/L (22-30); Chloride 112 mmol/L (98-107); Estimated Creatinine Clearance 98 ml/min; Glucose 92 mg/dl (70-99); Iron 42 ug/dl (37-170); Potassium 4.1 mmol/L (3.5-5.1); Sodium 139 mmol/L (135-145); eGFR > 60.00
[2025-04-15] MEDS: FLUSH (NSS) 1 FLUSH IV ×3 (08:21→12:49)
[2025-04-15 08:28] LABS: Total Iron Binding Capacity 324 ug/dl (265-497)
[2025-04-15 08:54] LABS: Ferritin 30.5 ng/ml (6.24-137)
[2025-04-15 11:45] LABS: HCG, Serum Qualitative Screen Negative
[2025-04-15] MEDS: TORADOL 15 MG IV (12:08)
--- NOTE | 2025-04-15 12:29 | W.PN.HOSP.TC ---
Today's Communication/Plan
-
see plan
Assessment / Plan
Assessment / Plan
Patient is a 44y F with PMH significant for thyroid disease and pituitary adenoma who presents to ED complaining of L breast pain, swelling and discharge. Patient initially developed symptoms in November of this year. This improved with
outpatient abx. She was then hospitalized in February with recurrent / worse symptoms. She was evaluated for suspected collection / abscess; however, no drainable collection was identified and no procedure performed. She was treated with IV abx and
transitioned to oral Keflex. Patient states that her symptoms improved, but never fully resolved.
Breast US
IMPRESSION: 2 left breast findings probably abscesses. See above. New
Probable reactive lymphadenopathy.
Brain MRI
IMPRESSION:
No MR abnormality of the pituitary. Specifically, no MR evidence for pituitary adenoma
Brain has a normal MR appearance
Mastitis / Cellulitis of the Left Breast
Left Breast abscess
- admitted to medicine with Breast surgery consulting
- US today shows two areas of likely abscess in left breast
-continue IV Cefepime
- plan for IR-guided aspiration, will follow up cultures
- pain control
Pituitary Adenoma
- Unclear details. Patient states that she was diagnosed in 2022 and completed 3 months of medication to shrink the tumor.
- Note that prolactin level checked in February was moderately elevated at 75.
- MRI without finding of adenoma
repeat prolactin level tomorrow, will also check TSH
Mild Intermittent Asthma
- Stable. Albuterol PRN.
DVT Prophylaxis: SCDs
Code Status: Full
Anticipated Discharge: 24 - 48 hours
Subjective/Interval History
-
Date of Service: April 15, 2025
pain left breast, dilaudid helps
no fevers/chils
Objective Data
-
Labs:
Laboratory Results
04/15/25
07:39
WBC 9.5
Hgb 9.5 L
Hct 29.1 L
Plt Count 280 D
Sodium 139
Potassium 4.1
Chloride 112 H
Carbon Dioxide 23
BUN 9
Creatinine 0.6
Glucose 92
Calcium 8.0 L
Vital Signs:
Vital Signs
Temp Pulse Resp BP Pulse Ox
97.9 F 74 16 129/76 100
04/15/25 07:21 04/15/25 07:21 04/15/25 07:21 04/15/25 07:21 04/15/25 08:32
Review of Systems
-
History Source: Patient
All other systems: Reviewed and negative
Physical Exam
-
General: No Apparent Distress
HEENT: PERRLA
Respiratory: Clear to Auscultation; Negative Wheezes
Cardiac: Regular Rhythm and S1/S2
Breast: Other (left breast with erythema and induration surrounding nipple )
GI: Soft and Nontender
Musculoskeletal: No Edema
Skin: Warm and Dry; Negative Rash
Neuro: AO x 3
Psych: Calm
Data Reviewed
-
Diagnostic Radiology: Report Reviewed by me
Labs: Labs Reviewed by me
--- NOTE | 2025-04-15 13:29 | CON.GS ---
Consultation
-
Date/Time Consultation Requested: 04/15/25 0801H
Date/Time Consultation Performed: 04/15/25 1330H
Requesting Provider: Susanne
Performing Provider: Anh
Reason for Consultation: Recurrent left breast abscess
Medical History
-
Chief Complaint: Left breast infection
History of Present Illness:
the patient is a 44 Y/O female known to me with recurrent cellulitis of the left breast who presents now with recurrent pain, erythema, edema and two sites of fluid collection seen on US. She was also treated for a pituitary adenoma
through medical means and a repeat MRI today shows no evidece of a tumor.
Past Medical History
Past Medical History: Reviewed & Noncontributory
Past Surgical History: Reviewed & Noncontributory
Social History
Tobacco: Former Smoker
Drug: None
Family History
Family History: Reviewed & Not Pertinent
Allergies / Home Medications
Allergy/AdvReac Type Severity Reaction Status Date / Time
No Known Allergies Allergy Verified 04/14/25 21:20
�Medication �Instructions �Recorded �Confirmed �Type
albuterol sulfate 90 mcg/actuation 2 puff inhalation Q6H PRN SOB 02/04/25 04/15/25 History
aerosol inhaler
ibuprofen 200 mg tablet 800 mg PO Q6H PRN Pain 02/04/25 04/15/25 History
vit no.95-ferrous 1 tab PO DAILY 02/04/25 04/15/25 History
fumarate 28 mg-folic acid 800 mcg
tablet ()
Review of Systems
-
History Source: Patient
Constitutional: Fever
EENT: No Symptoms
Respiratory: No Symptoms
Cardiac: No Symptoms
Abdomen/GI: No Symptoms
: No Symptoms
Musculoskeletal: No Symptoms
Skin: Other (edema and erythema of the left breast)
Neurological: No Symptoms
Endocrine: No Symptoms
Hematologic/Lymphatic: No Symptoms
A 10 point review of systems was completed, and was negative except as per HPI.
Physical Exam
Vital Signs
Temp Pulse Resp BP Pulse Ox
97.9 F 74 16 129/76 100
04/15/25 07:21 04/15/25 07:21 04/15/25 07:21 04/15/25 07:21 04/15/25 08:32
04/14/25 04/15/25 04/16/25
06:59 06:59 06:59
Actual Weight 67.273 kg
Body Mass Index (BMI) 31.0
Lab Results
04/15/25 07:39
04/15/25 07:39
WBC 9.5 10^3/uL (4.8-10.8) 04/15/25 07:39
Hgb 9.5 g/dL (12.0-16.0) L 04/15/25 07:39
Hct 29.1 % (37.0-47.0) L 04/15/25 07:39
Plt Count 280 10^3/uL (130-400) D 04/15/25 07:39
Abs Immat Gran (auto) 0.1 10^3/uL (0-0.05) H 04/14/25 21:49
Neutrophils % 75.9 % (42.2-75.2) H 04/14/25 21:49
Physical Exam
General: Well Developed and Well Nourished
HEENT: Normocephalic and Anicteric
Respiratory: Clear
Cardiac: S1/S2 and Regular Rhythm
Breast: Other (edema and erythema left breast with no drainage)
GI: Soft and Non Tender
Musculoskeletal: No Clubbing
Skin: Warm and Dry
Neuro: Awake and Alert
Psych: Calm
Data Reviewed
-
Radiology: Image Personally Visualized and interpreted, Report Reviewed by me and Discussed with Patient
Ultrasound: Image Personally Visualized and interpreted, Report Reviewed by me, Discussed with Physician and Discussed with Patient
Labs: Labs Reviewed by me
Total Time Spent with Patient (in minutes): 30
Assessment / Plan
-
the patient has recurrent left breast cellulitis/abscess now with 2 fluid collections. Will undergo aspiration by IR.
--- NOTE | 2025-04-15 13:41 | CM ---
Initial assessment completed. Patient is a 44y F with PMH significant for thyroid disease and pituitary adenoma who presents to ED complaining of L breast pain, swelling and discharge.
Patient resides w/ significant other in a 4STH, 1 step to enter. Patient is independent w/ ambulation, no device required. Independent w/ ADLs. Patient has a neb machine that is used as needed. No therapy hx reported.
Address, point of contact and insurance verified
PCP: Patient does not have a PCP or active insurance at this time
Pharmacy: [facility]
Plan: Home, no needs anticipated
--- NOTE | 2025-04-15 16:20 | PTCARENOTE ---
Pt AAO x3, ROTH well, OOB in room, racquel well. VSS. On room air- pulse ox 97%, no SOB noted. Abd large, soft, racquel PO well. Voids in BR without difficulty. Lt breast reddened with orange peel appearance; tender, pt c/o 'It really hurts'- good
effect with IV Dilaudid. IVF's dc'd as ordered. resting in bed at present. Will continue to monitor.
--- NOTE | 2025-04-15 18:17 | PTCARENOTE ---
Pt retuned from IR s/p Lt breast abscess drainage via stretcher, accompanied by IR RN. PT AAO x3, ROTH well ,ambulatory to bed; no c/o. VSS. Left upper breast bandaid D/I. No c/o discomfort at present. Will continue to monitor.
--- NOTE | 2025-04-15 18:32 | W.PN.UPDATE ---
Update Note
Progress Note Update
US guided aspiration of the 12 oclock left breast collection yielded 5 cc of pus. Collection was too small for drainage catheter placement.
Aspiration of the 10 oclock collection only yielded a couple drops of hemorrhagic fluid.
[2025-04-15] MEDS: TYLENOL 650 MG PO (22:52)
[2025-04-16] MEDS: DILAUDID 0.5 MG IV ×3 (02:55→09:35)
[2025-04-16] MEDS: MAXIPIME 2000 MG IV (02:59)
[2025-04-16] MEDS: STERILE WATER FOR INJECTION 10 ML IV (02:59)
[2025-04-16 07:44] LABS: Hematocrit 28.2 % (37.0-47.0); Hemoglobin 9.3 g/dL (12.0-16.0); Mean Corp Hgb Conc. 33.0 g/dL (33.0-37.0); Mean Corpuscular Volume 76.2 fL (81.0-99.0); Nucleated Red Blood Cells % 0 %; Platelet Count 294 10^3/uL (130-400); Red Cell Dist. Width 13.4 % (11.5-14.5)
[2025-04-16 07:45] VITALS: BP 126/72
[2025-04-16 08:10] LABS: Blood Urea Nitrogen 10 mg/dl (7-17); Calcium 9.0 mg/dl (8.4-10.2); Carbon Dioxide 26 mmol/L (22-30); Chloride 108 mmol/L (98-107); Estimated Creatinine Clearance 98 ml/min; Glucose 102 mg/dl (70-99); Potassium 3.8 mmol/L (3.5-5.1); Sodium 138 mmol/L (135-145); eGFR > 60.00
[2025-04-16] MEDS: FLUSH (NSS) 2 FLUSH IV (09:36)
--- NOTE | 2025-04-16 12:03 | W.PN.HOSP.TC ---
Today's Communication/Plan
-
Vanc/Unasyn
monitor fever curve
follow up cultures
Assessment / Plan
Assessment / Plan
Patient is a 44y F with PMH significant for thyroid disease and pituitary adenoma who presents to ED complaining of L breast pain, swelling and discharge. Patient initially developed symptoms in November of this year. This improved with
outpatient abx. She was then hospitalized in February with recurrent / worse symptoms. She was evaluated for suspected collection / abscess; however, no drainable collection was identified and no procedure performed. She was treated with IV abx and
transitioned to oral Keflex. Patient states that her symptoms improved, but never fully resolved.
Breast US
IMPRESSION: 2 left breast findings probably abscesses. See above. New
Probable reactive lymphadenopathy.
Brain MRI
IMPRESSION:
No MR abnormality of the pituitary. Specifically, no MR evidence for pituitary adenoma
Brain has a normal MR appearance
Mastitis / Cellulitis of the Left Breast
Left Breast abscess
- admitted to medicine with Breast surgery consulting
- US shows two areas of likely abscess in left breast
- s/p IR guided aspiration, awaiting culture results
- given presence of abscess, I will cover for MRSA with IV Vancomycin and change cefepime to Unasyn for anaerobic coverage
Pituitary Adenoma
- Unclear details. Patient states that she was diagnosed in 2022 and completed 3 months of medication to shrink the tumor with brimocriptine
- Note that prolactin level checked in February was moderately elevated at 75, repeat here 57.
- MRI without finding of adenoma
- I have TT's endocrinology to see if any further workup recommended in-house
Mild Intermittent Asthma
- Stable. Albuterol PRN.
DVT Prophylaxis: lovenox subQ ordered
Code Status: Full
Anticipated Discharge: 24 - 48 hours
Subjective/Interval History
-
Date of Service: April 16, 2025
she had a fever last night
pain mildly reduced at top portion of breast, but continues
Objective Data
-
Labs:
Laboratory Results
04/16/25
07:23
WBC 11.0 H
Hgb 9.3 L
Hct 28.2 L
Plt Count 294
Sodium 138
Potassium 3.8
Chloride 108 H
Carbon Dioxide 26
BUN 10
Creatinine 0.6
Glucose 102 H
Calcium 9.0
Vital Signs:
Vital Signs
Temp Pulse Resp BP Pulse Ox
98.2 F 94 16 126/72 96
04/16/25 11:14 04/16/25 07:45 04/16/25 07:45 04/16/25 07:45 04/16/25 09:00
I&O
04/15/25 04/16/25 04/17/25
06:59 06:59 06:59
Intake Total 1430 / 1430
Balance 1430 / 1430
Review of Systems
-
History Source: Patient
All other systems: Reviewed and negative
Physical Exam
-
General: No Apparent Distress
HEENT: PERRLA
Respiratory: Clear to Auscultation; Negative Wheezes
Cardiac: Regular Rhythm and S1/S2
Breast: Other (left breast with erythema and induration surrounding nipple )
GI: Soft and Nontender
Musculoskeletal: No Edema
Skin: Warm and Dry; Negative Rash
Neuro: AO x 3
Psych: Calm
Data Reviewed
-
Diagnostic Radiology: Report Reviewed by me
Labs: Labs Reviewed by me
[2025-04-16] MEDS: VISBIOME 1 CAP PO (12:07)
[2025-04-16] MEDS: TORADOL 15 MG IV (12:09)
[2025-04-16] MEDS: UNASYN IV ×3 (12:34→23:30)
[2025-04-16] MEDS: ROXICODONE 5 MG PO ×3 (12:40→23:36)
[2025-04-16] MEDS: VANCOCIN 530 MG IV (13:08)
[2025-04-16] MEDS: STERILE WATER FOR INJECTION IV ×2 (13:25→20:09)
--- NOTE | 2025-04-16 14:12 | PHA.VAN.IN ---
Assessment
- Assessment
Renal Function: Appears similar to baseline
Maximum Temperature: 102.8
Minimum Temperature: 98.2
Concomitant Antimicrobials: unasyn 3g Q6H
AUC Dosing Plan
- Dosing Variables
Dosing Weight (kg): 67.2
Dosing CrCl (ml/min): 98
Vd coefficient (L/kg): 0.7
- Empiric Dosing
Initial / Loading Dose: vancomycin 1500 mg
Maintenance Regimen: vancomycin 1000 mg q12h
Estimated AUC (mcg*h/mL): 517
Estimated Peak (mcg*h/mL): 33.1
Estimated Trough (mcg/ml): 12.9
Estimated Half Life (H): 8.1
- Monitoring
No levels ordered at this time: consider levels in next few days
Pharmacokinetics Vancomycin I
- -
Patient Age: 44
Patient Sex: Female
Vancomycin Day #: 1
Indication: Skin And Soft Tissue
Requesting Provider: Katheryn Roberts
Pertinent Antimicrobial Allergies:
nkda
Height / Weight:
Height 4 ft 10 in
Actual Weight 67.273 kg
IBW in k.9
Adjusted BW in k.4
- Vital Signs / Lab Results
Temp Pulse Resp BP Pulse Ox
98.2 F 94 16 126/72 96
04/16/25 11:14 04/16/25 07:45 04/16/25 07:45 04/16/25 07:45 04/16/25 09:00
Lab Results - Hematology
04/14/25 04/15/25 04/16/25
21:49 07:39 07:23
WBC 12.2 H 9.5 11.0 H
Lab Results - Chemistry
04/14/25 04/15/25 04/16/25
21:49 07:39 07:23
BUN 8 9 10
Creatinine 0.7 0.6 0.6
Estimated Creat Clear 98 98
Albumin 4.4
04/14/25 04/15/25
21:47 01:30
Lactic Acid 1.2 Cancelled
Lab Results - Urine
04/14/25
21:47
Urine Nitrite (Reflex) Negative
Leukocyte Esterase Rfl 1+ A
Urine WBC (Reflex) 11-15 A
Ur Squamous Epith Cells 16-20
Urine Bacteria (Reflex) Few A
Microbiology Results
04/14/25 21:47 Urine Culture - Final
Urine NO GROWTH
04/15/25 17:41 Gram Stain - Preliminary
Breast - Left
04/14/25 22:50 Blood Culture - Preliminary
Blood/Venous No Growth in 24 hours- Final report to follow
04/14/25 21:49 Blood Culture - Preliminary
Blood/Venous No Growth in 24 hours- Final report to follow
--- NOTE | 2025-04-16 15:19 | PTCARENOTE ---
1500- Pt alerted RN that she was feeling itchy of face, posterior neck, and hands. No rash noted. No SOB. Pt noticed itchiness since IV Vanco started. Pt also reports feeling crampy of her bilateral groin and into right back, rating 2/10 pain.
Stopped IV Vanco and alerted Dr. Skinner of above. See new orders for Benadryl IV. Updated pt on plan, will monitor.
[2025-04-16] MEDS: BENADRYL 25 MG IV (15:26)
[2025-04-16 15:40] VITALS: BP 113/71
--- NOTE | 2025-04-16 15:42 | W.PN.UPDATE ---
Update Note
Progress Note Update
Patient felt itching along wrists, posterior neck, face after receiving IV Vancomycin. She received IV Benadryl with good response.
I will stop IV Vancomycin and start Doxycycline for MRSA coverage while awaiting culture.
[2025-04-16] MEDS: TYLENOL 650 MG PO (18:49)
[2025-04-16] MEDS: VIBRAMYCIN 100 MG PO (20:10)
[2025-04-16 23:17] VITALS: BP 128/77
[2025-04-17] MEDS: STERILE WATER FOR INJECTION IV ×3 (02:24→19:59)
[2025-04-17] MEDS: TYLENOL 650 MG PO ×2 (02:42→19:59)
[2025-04-17] MEDS: DILAUDID 0.5 MG IV ×3 (02:48→16:50)
[2025-04-17] MEDS: OCEAN, SALINE MIST 2 SPRAYS NASAL (04:49)
[2025-04-17] MEDS: UNASYN IV ×4 (05:00→23:38)
[2025-04-17 07:07] LABS: Hematocrit 27.6 % (37.0-47.0); Hemoglobin 9.1 g/dL (12.0-16.0); Mean Corp Hgb Conc. 33.0 g/dL (33.0-37.0); Mean Corpuscular Volume 76.5 fL (81.0-99.0); Nucleated Red Blood Cells % 0 %; Platelet Count 302 10^3/uL (130-400); Red Cell Dist. Width 13.2 % (11.5-14.5)
[2025-04-17 07:29] LABS: Blood Urea Nitrogen 9 mg/dl (7-17); Calcium 8.7 mg/dl (8.4-10.2); Carbon Dioxide 27 mmol/L (22-30); Chloride 105 mmol/L (98-107); Estimated Creatinine Clearance 84 ml/min; Glucose 99 mg/dl (70-99); Potassium 3.8 mmol/L (3.5-5.1); Sodium 137 mmol/L (135-145); eGFR > 60.00
[2025-04-17 07:35] VITALS: BP 124/73
[2025-04-17] MEDS: ROXICODONE 10 MG PO ×3 (08:34→20:06)
[2025-04-17] MEDS: VIBRAMYCIN 100 MG PO ×2 (08:35→19:59)
[2025-04-17] MEDS: VISBIOME 1 CAP PO (08:35)
--- NOTE | 2025-04-17 08:45 | CON.ID ---
Consultation
-
Date/Time Consultation Requested: April 17, 2025 [id number]
Date/Time Consultation Performed: April 17, 2025 0821
Requesting Provider: Dr. Rhiannon Skinner
Performing Provider: Dr. Denia Macias
Reason for Consultation: Recurrent breast abscess
Chief Complaint / Past History
Chief Complaint
Breast swelling and redness
History of Present Illness
44-year-old female history of benign pituitary tumor, left breast cellulitis in 11/2024, recent hospitalization February 04 -February 09 with left breast cellulitis, early abscess not drainable discharged on cephalexin x 10 more days, who presented to the
hospital on April 15 with recurrence of left breast edema and erythema. She noted left breast swelling and discomfort on April 12. Condition progressively worse with edema like the size of a bowling ball. There is intense redness around the
area areola. Positive pain. Positive fevers and chills. In the ER temperature 102.8. Ultrasound of the breast showed fluid collection at 12:00 and 10:00 positions. She underwent IR aspiration of the 12:00 fluid with pus output, aspiration of
the 10 o'clock position fluid was bloody. Culture pending. Initially she was placed on cefepime and vancomycin. She developed itching on vancomycin. She is now on Unasyn and doxycycline. Patient denies trauma to the breast. She is not
breast-feeding. No oral floor exposure. After the drainage, the 12 o'clock position erythema has improved. However the rest of her breast is still sore and red.
Past History
Additional Past Medical History:
Benign pituitary tumor
Hypothyroidism
Asthma
Additional Past Surgical History:
x 2
Allergy History:
vancomycin Allergy (Mild, Verified 04/16/25 15:42)
Itching
Medications Reviewed: Yes
Current Antibiotics:
s/p Vancomycin x3d
s/p Cefepime x2d
Unasyn d2
doxy d2
Social History
Tobacco: Non-Smoker
Alcohol: None
Drug: None
Personal: Partner
Living: With Family
Employment: Employed
Family History
Family History: Not Pertinent
Review of Systems
Review of Systems
General: Fever and Chills; Negative Change in Appetite
HEENT: Negative Sinus Problems or Headache
Cardiovascular: Negative Chest Pain or Dyspnea
Respiratory: Negative Dyspnea or Cough
Gasteroenterology: Negative Nausea, Vomiting or Diarrhea
Genital / Urological: Negative Dysuria or Flank Pain
All systems: All other systems were reviewed and were negative
Vital Signs
Temp Pulse Resp BP Pulse Ox
98.5 F 79 14 124/73 96
04/17/25 07:35 04/17/25 07:35 04/17/25 07:35 04/17/25 07:35 04/17/25 07:35
Selected Entries
04/16/25
18:48
Temp 100.9 F H
Physical Exam
Physical Exam
Constitutional: No Acute Distress
Eyes: No Conjunctival Hemorrhage and Sclera Anicteric
Cardiovascular: Regular Rate and S1/S2
Pulmonary: Clear
Gastrointestinal: Soft, Non Tender, Non Distended and Normal Bowel Sounds
Genito-Urinary: Negative CVA Tenderness
Extremities: Negative Edema
Neurological: AO x 3
Left breast: + edema, + erythema surrounding areola from top to inferior breast. + white drainage from 12:00 position
Lab / Diagnostic Study Results
04/17/25 06:15
04/17/25 06:15
Abs Immat Gran (auto) 0.0 10^3/uL (0-0.05) 04/17/25 06:15
Absolute Neuts (auto) 7.1 10^3/uL (1.4-6.5) H 04/17/25 06:15
Absolute Lymphs (auto) 1.8 10^3/uL (1.2-3.4) 04/17/25 06:15
Absolute Monos (auto) 1.5 10^3/uL (0.1-0.6) H 04/17/25 06:15
Absolute Basos (auto) 0.0 10^3/uL (0-0.2) 04/17/25 06:15
Immature Gran % 0.3 % (0-0.5) 04/17/25 06:15
Neutrophils % 65.3 % (42.2-75.2) 04/17/25 06:15
Lymphocytes % 16.5 % (20.5-51.1) L 04/17/25 06:15
Monocytes % 13.4 % (1.7-9.3) H 04/17/25 06:15
Eosinophils % 4.1 % (0-6) 04/17/25 06:15
Basophils % 0.4 % (0-2) 04/17/25 06:15
Lactic Acid Cancelled 04/15/25 01:30
Ur Squamous Epith Cells 16-20 /LPF (Few) 04/14/25 21:47
Microbiology Results
Micro:
04/14/25 22:50 Blood Culture - Preliminary
Blood/Venous No Growth in 48 hours- Final report to follow
04/14/25 21:49 Blood Culture - Preliminary
Blood/Venous No Growth in 48 hours- Final report to follow
04/14/25 21:47 Urine Culture - Final
Urine NO GROWTH
04/15/25 17:41 Wound Culture - Pending
Breast - Left Gram Stain - Preliminary
04/15/25 Breast US: complex fluid collection at one area of pain and swelling at the 12:00 position 4 cm from nipple. It has a thick irregular rim. It measures 2.6 x 1.5 x 1.7 cm. Second area of concern at the 10:00 position shows a wider than tall
partially circumscribed hypoechoic mass probably complex fluid. It measures 2.4 x 1.5 x 2.2 cm.
Assessment / Plan
# Recurrent non-puerperal left mastitis
# Left breast abscesses s/p aspirations
# Fever
# Leukocytosis resolving
# h/x of pituitary adenoma
-Blood cx's neg to date
- Await abscess culture
- Can continue Unasyn pending cx data.
- DC doxycycline (no h/o MRSA)
- Trend temps
Care Review
Plan reviewed with: Physician (Dr. Skinner)
--- NOTE | 2025-04-17 11:06 | W.PN.HOSP.TC ---
Today's Communication/Plan
-
IV Unasyn/Doxy
appreciate specialists
Assessment / Plan
Assessment / Plan
Patient is a 44y F with PMH significant for thyroid disease and pituitary adenoma who presents to ED complaining of L breast pain, swelling and discharge. Patient initially developed symptoms in November of this year. This improved with
outpatient abx. She was then hospitalized in February with recurrent / worse symptoms. She was evaluated for suspected collection / abscess; however, no drainable collection was identified and no procedure performed. She was treated with IV abx and
transitioned to oral Keflex. Patient states that her symptoms improved, but never fully resolved.
Breast US
IMPRESSION: 2 left breast findings probably abscesses. See above. New
Probable reactive lymphadenopathy.
Brain MRI
IMPRESSION:
No MR abnormality of the pituitary. Specifically, no MR evidence for pituitary adenoma
Brain has a normal MR appearance
Mastitis / Cellulitis of the Left Breast
Left Breast abscess
- admitted to medicine with Breast surgery consulting
- US shows two areas of likely abscess in left breast
- s/p IR guided aspiration on 04/15, awaiting culture results
- abx changed from IV Cefepime to IV Vanc/Unasyn on 04/16. Patient with itching post Vancomycin - changed to Doxycycline
- appreciate ID consult
- appreciate breast surgery consult
Pituitary Adenoma
- Patient states that she was diagnosed in 2022 and completed 3 months of medication to shrink the tumor with brimocriptine
- Prolactin level checked in February was moderately elevated at 75, repeat here 57.
- MRI without finding of adenoma
- I discussed case with Dr. Klein who recommends Cabergoline 0.5mg once a week with plans to follow up outpatient. We do not have this medication in-house, have put in [facility]
Mild Intermittent Asthma
- Stable. Albuterol PRN.
DVT Prophylaxis: lovenox subQ ordered, ambulation encouraged
Code Status: Full
Anticipated Discharge: 24 - 48 hours
Subjective/Interval History
-
Date of Service: April 17, 2025
pain remains present
some drainage
fever curve improving
Objective Data
-
Labs:
Laboratory Results
04/17/25
06:15
WBC 10.9 H
Hgb 9.1 L
Hct 27.6 L
Plt Count 302
Sodium 137
Potassium 3.8
Chloride 105
Carbon Dioxide 27
BUN 9
Creatinine 0.7
Glucose 99
Calcium 8.7
Vital Signs:
Vital Signs
Temp Pulse Resp BP Pulse Ox
98.5 F 79 14 124/73 96
04/17/25 07:35 04/17/25 07:35 04/17/25 07:35 04/17/25 07:35 04/17/25 07:35
I&O
04/16/25 04/17/25 04/18/25
06:59 06:59 06:59
Intake Total 1430 / 1430 1640 / 1640 480 / 480
Balance 1430 / 1430 1640 / 1640 480 / 480
Review of Systems
-
History Source: Patient
All other systems: Reviewed and negative
Physical Exam
-
General: No Apparent Distress
HEENT: PERRLA
Respiratory: Clear to Auscultation; Negative Wheezes
Cardiac: Regular Rhythm and S1/S2
Breast: Other (left breast with erythema and induration surrounding nipple some clear drainage this morning)
GI: Soft and Nontender
Musculoskeletal: No Edema
Skin: Warm and Dry; Negative Rash
Neuro: AO x 3
Psych: Calm
Data Reviewed
-
Diagnostic Radiology: Report Reviewed by me
Labs: Labs Reviewed by me
[2025-04-17] MEDS: CLARITIN 10 MG PO (13:24)
[2025-04-17 15:35] VITALS: BP 143/86
[2025-04-17 23:43] VITALS: BP 115/67
[2025-04-18] MEDS: ROXICODONE 5 MG PO ×2 (00:09→11:29)
--- NOTE | 2025-04-18 00:10 | VATNOTE ---
Paged by PCN to due to IV infiltrate. Patient with warmth, redness, discomfort and palpable cord to right forearm. IV discontinued and patient offered warm compress, patient states that it feels better with the ice she has. New IV placed in right
hand and PCN aware if patient changes mind to use a warm compress to the area. VAT to follow.
[2025-04-18] MEDS: STERILE WATER FOR INJECTION IV ×2 (04:55→12:50)
[2025-04-18] MEDS: DILAUDID 0.5 MG IV ×2 (04:55→08:32)
[2025-04-18] MEDS: UNASYN IV ×4 (05:00→23:22)
[2025-04-18 07:09] LABS: Hematocrit 29.1 % (37.0-47.0); Hemoglobin 9.6 g/dL (12.0-16.0); Mean Corp Hgb Conc. 33.0 g/dL (33.0-37.0); Mean Corpuscular Volume 75.6 fL (81.0-99.0); Nucleated Red Blood Cells % 0 %; Platelet Count 319 10^3/uL (130-400); Red Cell Dist. Width 13.2 % (11.5-14.5)
[2025-04-18 07:57] VITALS: BP 120/74
[2025-04-18] MEDS: CLARITIN 10 MG PO (08:32)
[2025-04-18] MEDS: VIBRAMYCIN 100 MG PO (08:32)
[2025-04-18] MEDS: FLUSH (NSS) 1 FLUSH IV ×5 (08:32→18:38)
[2025-04-18] MEDS: VISBIOME 1 CAP PO (08:32)
--- NOTE | 2025-04-18 09:06 | W.PN.HOSP.TC ---
Today's Communication/Plan
-
Continue antibiotics
Assessment / Plan
Assessment / Plan
Patient is a 44y F with PMH significant for thyroid disease and pituitary adenoma who presents to ED complaining of L breast pain, swelling and discharge. Patient initially developed symptoms in November of this year. This improved with
outpatient abx. She was then hospitalized in February with recurrent / worse symptoms. She was evaluated for suspected collection / abscess; however, no drainable collection was identified and no procedure performed. She was treated with IV abx and
transitioned to oral Keflex. Patient states that her symptoms improved, but never fully resolved.
Breast US
IMPRESSION: 2 left breast findings probably abscesses. See above. New
Probable reactive lymphadenopathy.
Brain MRI
IMPRESSION:
No MR abnormality of the pituitary. Specifically, no MR evidence for pituitary adenoma
Brain has a normal MR appearance
Recurrent left mastitis
Left Breast abscess
- admitted to medicine with Breast surgery consulting
- US shows two areas of likely abscess in left breast
- s/p IR guided aspiration on 04/15, cultures negative to date
- abx changed from IV Cefepime to IV Vanc/Unasyn on 04/16. Patient with itching post Vancomycin - changed to Doxycycline
- appreciate ID input, recommend continuing only Unasyn for now, continue pain control
Constipation
- Start aggressive bowel regimen
Pituitary Adenoma
- Patient states that she was diagnosed in 2022 and completed 3 months of medication to shrink the tumor with brimocriptine
- Prolactin level checked in February was moderately elevated at 75, repeat here 57.
- MRI without finding of adenoma
- I discussed case with Dr. Klein who recommends Cabergoline 0.5mg once a week with plans to follow up outpatient. We do not have this medication in-house, have put in [facility]
Mild Intermittent Asthma
- Stable. Albuterol PRN.
DVT Prophylaxis: lovenox subQ ordered, ambulation encouraged
Code Status: Full
Total time spent to see the patient on the floor, examine the patient, review data and lab results, discuss treatment plan with patient, nursing staff around 39 minutes.
Physical Exam
General: No acute distress
HEENT: Normocephalic, Atraumatic, EOMI, MMM
Respiratory: Clear to Auscultation bilaterally
Chest wall: Left breast diffusely firm, erythematous, tender to the touch
Cardiac: Normal S1/S2, Regular Rate and Rhythm
GI: Soft, Nontender, Nondistended, Normal Bowel Sounds
Extremities: No Clubbing, Cyanosis, or Edema
Neuro: Nonfocal/Grossly Intact
Psych: Calm, Cooperative
Derm: No Visible lesions
Anticipated Discharge: 24 - 48 hours
Subjective/Interval History
-
Date of Service: April 18, 2025
Patient complains of severe excruciating pain on her left breast, 12 out of 10 in intensity, reports it is worse. She had fever yesterday evening, at 7:30 PM, temperature 101.8. No vomiting.
Objective Data
-
Labs:
Laboratory Results
04/18/25
06:59
WBC 10.6
Hgb 9.6 L
Hct 29.1 L
Plt Count 319
Vital Signs:
Vital Signs
Temp Pulse Resp BP Pulse Ox
98.5 F 89 16 120/74 100
04/18/25 07:57 04/18/25 07:57 04/18/25 07:57 04/18/25 07:57 04/18/25 08:29
I&O
04/17/25 04/18/25 04/19/25
06:59 06:59 06:59
Intake Total 1640 / 1640 1200 / 1200
Balance 1640 / 1640 1200 / 1200
--- NOTE | 2025-04-18 09:42 | VATNOTE ---
Patient with phlebitis to right forearm as reported by previous shift. Area pink and tender, no drainage. Cord palpable.
[2025-04-18] MEDS: TORADOL 15 MG IV ×2 (11:01→21:45)
--- NOTE | 2025-04-18 11:26 | CM ---
Chart reviewed. Plan of care ongoing
Cont IV abx
No CM needs at this time
[2025-04-18] MEDS: MIRALAX 17 GRAMS PO (12:41)
--- NOTE | 2025-04-18 14:31 | W.PN.UPDATE ---
Update Note
Progress Note Update
Cultures still pending on the breast fluid. Await results.
--- NOTE | 2025-04-18 14:34 | W.PN.ID1 ---
Date of Service
Date of Service: April 18, 2025
Today's Communication
Continue Unasyn
Assessment / Plan
# Recurrent non-puerperal left mastitis
# Left breast abscesses s/p aspirations, cx neg to date
# Fever
# Leukocytosis resolved
# Prolactinemia
# h/x of pituitary adenoma
-Blood cx's neg to date
- Breast abscess culture neg to date.
- Continue Unasyn.
- Pt with elevated prolactin and thus lactates intermittently. Keep milk ducts open with warm/cold compress to reduce mastitis.
- Trend temps
Chief Complaint
-: Other (left breast infection)
Subjective / Review of Systems
Left breast still firm inferiorly. Drainage now clear.
Vital Signs / Physical Exam
Vital Signs
Vital Signs
Temp Pulse Resp BP Pulse Ox
98.4 F 89 16 120/74 100
04/18/25 11:04 04/18/25 07:57 04/18/25 07:57 04/18/25 07:57 04/18/25 08:29
Selected Entries
04/17/25
19:33
Temp 101.8 F H
Physical Exam
Cardiovascular: Regular Rate and S1/S2
Pulmonary: Clear
Gastrointestinal: Soft, Non Tender and Non Distended
Extremities: Negative Edema
Skin: Other
Neurological: AO x 3
Physical Exam:
Left breast: + edema/induration lower half of breast, erythema decreasing
Objective Data
Lab Data
Lab Results
04/18/25 06:59
04/17/25 06:15
Estimated Creat Clear 84 ml/min 04/17/25 06:15
Lactic Acid Cancelled 04/15/25 01:30
Total Bilirubin 0.6 mg/dl (0.2-1.3) 04/14/25 21:49
AST 53 U/L (14-36) H 04/14/25 21:49
ALT 114 U/L (0-35) H 04/14/25 21:49
Alkaline Phosphatase 96 U/L (38-126) 04/14/25 21:49
Most recent labs reviewed.
Micro Results:
04/15/25 17:41 Wound Culture - Preliminary
Breast - Left No growth
Gram Stain - Preliminary
04/14/25 22:50 Blood Culture - Preliminary
Blood/Venous No Growth in 72 hours- Final report to follow
04/14/25 21:49 Blood Culture - Preliminary
Blood/Venous No Growth in 72 hours- Final report to follow
04/14/25 21:47 Urine Culture - Final
Urine NO GROWTH
04/15/25 Breast US: complex fluid collection at one area of pain and swelling at the 12:00 position 4 cm from nipple. It has a thick irregular rim. It measures 2.6 x 1.5 x 1.7 cm. Second area of concern at the 10:00 position shows a wider than tall
partially circumscribed hypoechoic mass probably complex fluid. It measures 2.4 x 1.5 x 2.2 cm.
[2025-04-18 15:29] VITALS: BP 118/75
--- NOTE | 2025-04-18 16:17 | PN.CDI ---
CDI
- -
CDI:
Physician Documentation Request
Admit Date: 04/15/25 01:47
Dear Doctor,
Please review the following and provide your response in the progress notes.
Clinical Indicators:
Pt admitted with recurrent left mastitis and left breast abscess.
Selected Entries
04/14/25
21:21 04/15/25
23:12 04/16/25
18:48
Temp 102.3 F H 102.8 F H 100.9 F H
Pulse 117 103
Laboratory Tests
04/14/25 04/16/25 04/17/25
21:49 07:23 06:15
WBC 12.2 H 11.0 H 10.9 H
Please clarify which of the following most accurately describes the status of the patient's infection:
Sepsis
- Systemic manifestations of infection, with 2 or more SIRS criteria which include:
- Fever >100.9 degrees F or hypothermia < 96.8 degrees F
- Leukocytosis - WBC > 12,000 or leukopenia - WBC < 4,000 or > 10% bands
- Tachycardia > 90 beats per minute
- Tachypnea - RR > 20 breaths per minute or PaCO2 , 32mmHg
Source: Merck Manual 2013
- Indicate the known or suspected organism
- Indicate the known or suspected underlying infection, such as UTI, pneumonia or cellulitis
Left Mastitis only, Without Systemic Illness
Other
Use of terms such as suspected, likely, concern for, or probable (associated with a specific diagnosis that is being evaluated, monitored, or treated as if it exists) are acceptable and can be coded in the inpatient setting, when documented at the
time of discharge.
Thank you,
Crys Chau RN, BSN
CDI Specialist
[place] [facility]
Please use your independent medical judgment in providing your response.
--- NOTE | 2025-04-18 16:49 | PTCARENOTE ---
Pt AAO x3, ROTH well, OOB in room/to BR; racquel well. VSS. On room air; pulseox 99%. Abd large; soft, racquel PO. Pt reports no BM x 2 days; bowel meds initiated. Voids in BR without difficulty. Lt breast reddened/tender/+1 edema. no drainage noted
from IR procedure site at present. Resting in bed at present. Will continue to monitor.
[2025-04-18] MEDS: DILAUDID 1 MG IV ×2 (18:38→23:22)
[2025-04-18] MEDS: SENOKOT-S 2 TABLET PO (20:11)
[2025-04-18] MEDS: ROXICODONE 10 MG PO (21:46)
[2025-04-18 23:55] VITALS: BP 127/70
[2025-04-19] MEDS: STERILE WATER FOR INJECTION IV ×2 (03:09→05:05)
[2025-04-19] MEDS: UNASYN IV ×4 (05:13→23:23)
[2025-04-19 07:30] VITALS: BP 143/85
[2025-04-19 09:14] LABS: Hematocrit 29.9 % (37.0-47.0); Hemoglobin 9.9 g/dL (12.0-16.0); Mean Corp Hgb Conc. 33.1 g/dL (33.0-37.0); Mean Corpuscular Volume 76.7 fL (81.0-99.0); Nucleated Red Blood Cells % 0 %; Platelet Count 356 10^3/uL (130-400); Red Cell Dist. Width 13.2 % (11.5-14.5)
[2025-04-19] MEDS: ROXICODONE 10 MG PO ×2 (09:46→18:21)
[2025-04-19] MEDS: MIRALAX 17 GRAMS PO (09:46)
[2025-04-19] MEDS: VISBIOME 1 CAP PO (09:47)
[2025-04-19] MEDS: CLARITIN 10 MG PO (09:47)
[2025-04-19] MEDS: SENOKOT-S 2 TABLET PO ×2 (09:47→20:26)
[2025-04-19 10:51] LABS: Blood Urea Nitrogen 12 mg/dl (7-17); Calcium 9.1 mg/dl (8.4-10.2); Carbon Dioxide 27 mmol/L (22-30); Chloride 105 mmol/L (98-107); Estimated Creatinine Clearance 98 ml/min; Glucose 86 mg/dl (70-99); Potassium 4.6 mmol/L (3.5-5.1); Sodium 138 mmol/L (135-145); eGFR > 60.00
--- NOTE | 2025-04-19 11:24 | W.PN.ID1 ---
Date of Service
Date of Service: April 19, 2025
Today's Communication
- Continue Unasyn.
- At time of discharge, transition to Augmentin 875mg po bid through 04/29.
Assessment / Plan
# Recurrent non-puerperal left mastitis
# Left breast abscesses s/p aspirations, cx neg to date
# Fever resolved
# Leukocytosis resolved
# Prolactinemia
# h/x of pituitary adenoma
-Blood cx's neg to date
- Breast abscess culture neg to date.
- Pt with elevated prolactin and thus lactates intermittently. Keep milk ducts open with warm/cold compress to reduce recurrent mastitis.
- Continue Unasyn.
- At time of discharge, transition to Augmentin 875mg po bid through 04/29.
Chief Complaint
-: Other (left breast infection)
Subjective / Review of Systems
Breast still firm
Vital Signs / Physical Exam
Vital Signs
Vital Signs
Temp Pulse Resp BP Pulse Ox
99.0 F 79 18 143/85 96
04/19/25 07:30 04/19/25 07:30 04/19/25 07:30 04/19/25 07:30 04/19/25 09:45
Physical Exam
Cardiovascular: Regular Rate and S1/S2
Pulmonary: Clear
Gastrointestinal: Soft, Non Tender and Non Distended
Extremities: Negative Edema
Skin: Other
Neurological: AO x 3
Physical Exam:
Left breast: + edema/induration lower half of breast, erythema decreasing
Objective Data
Lab Data
Lab Results
04/19/25 08:47
04/19/25 08:47
Estimated Creat Clear 98 ml/min 04/19/25 08:47
Lactic Acid Cancelled 04/15/25 01:30
Total Bilirubin 0.6 mg/dl (0.2-1.3) 04/14/25 21:49
AST 53 U/L (14-36) H 04/14/25 21:49
ALT 114 U/L (0-35) H 04/14/25 21:49
Alkaline Phosphatase 96 U/L (38-126) 04/14/25 21:49
Most recent labs reviewed.
Micro Results:
04/14/25 22:50 Blood Culture - Preliminary
Blood/Venous No Growth in 4 days- Final report to follow
04/14/25 21:49 Blood Culture - Preliminary
Blood/Venous No Growth in 4 days- Final report to follow
04/15/25 17:41 Wound Culture - Preliminary
Breast - Left No growth
Gram Stain - Preliminary
04/14/25 21:47 Urine Culture - Final
Urine NO GROWTH
04/15/25 Breast US: complex fluid collection at one area of pain and swelling at the 12:00 position 4 cm from nipple. It has a thick irregular rim. It measures 2.6 x 1.5 x 1.7 cm. Second area of concern at the 10:00 position shows a wider than tall
partially circumscribed hypoechoic mass probably complex fluid. It measures 2.4 x 1.5 x 2.2 cm.
--- NOTE | 2025-04-19 12:07 | W.PN.HOSP.TC ---
Today's Communication/Plan
-
monitor vital signs see plan
Continue with Unasyn
Pain control
Continue with MiraLAX, Senokot. If still no bowel movement then will try suppository
Assessment / Plan
Assessment / Plan
Patient is a 44y F with PMH significant for thyroid disease and pituitary adenoma who presents to ED complaining of L breast pain, swelling and discharge. Patient initially developed symptoms in November of this year. This improved with
outpatient abx. She was then hospitalized in February with recurrent / worse symptoms. She was evaluated for suspected collection / abscess; however, no drainable collection was identified and no procedure performed. She was treated with IV abx and
transitioned to oral Keflex. Patient states that her symptoms improved, but never fully resolved.
Breast US
IMPRESSION: 2 left breast findings probably abscesses. See above. New
Probable reactive lymphadenopathy.
Brain MRI
IMPRESSION:
No MR abnormality of the pituitary. Specifically, no MR evidence for pituitary adenoma
Brain has a normal MR appearance
Recurrent left mastitis
Left Breast abscess
- admitted to medicine with Breast surgery consulting
- US shows two areas of likely abscess in left breast
- s/p IR guided aspiration on 04/15, cultures negative to date
- abx changed from IV Cefepime to IV Vanc/Unasyn on 04/16. Patient with itching post Vancomycin - changed to Doxycycline
- appreciate ID input, recommend continuing only Unasyn for now, continue pain control. Continue to require opiates for pain
Constipation
- Continue MiraLAX, Colace. Discussed with patient if no bowel movement then will have to try suppository
Pituitary Adenoma
- Patient states that she was diagnosed in 2022 and completed 3 months of medication to shrink the tumor with brimocriptine
- Prolactin level checked in February was moderately elevated at 75, repeat here 57.
- MRI without finding of adenoma
- Dr Skinner discussed case with Dr. Klein who recommends Cabergoline 0.5mg once a week with plans to follow up outpatient. We do not have this medication in-house, have put in DCI
Mild Intermittent Asthma
- Stable. Albuterol PRN.
DVT Prophylaxis: lovenox subQ ordered, ambulation encouraged
Code Status: Full
Physical Exam
General: No acute distress
HEENT: Normocephalic, Atraumatic, EOMI, MMM
Respiratory: Clear to Auscultation bilaterally
Cardiac: Normal S1/S2, Regular Rate and Rhythm
GI: Soft, Nontender, Nondistended, Normal Bowel Sounds
Extremities: No Edema
Neuro: Nonfocal/Grossly Intact
Psych: Calm, Cooperative
Derm: No Visible lesions
Anticipated Discharge: Within 24 hours
Subjective/Interval History
-
Date of Service: April 19, 2025
does have some pain however improving
Objective Data
-
Labs:
Laboratory Results
04/19/25
08:47
WBC 9.5
Hgb 9.9 L
Hct 29.9 L
Plt Count 356
Sodium 138
Potassium 4.6
Chloride 105
Carbon Dioxide 27
BUN 12
Creatinine 0.6
Glucose 86
Calcium 9.1
Vital Signs:
Vital Signs
Temp Pulse Resp BP Pulse Ox
99.0 F 79 18 143/85 96
04/19/25 07:30 04/19/25 07:30 04/19/25 07:30 04/19/25 07:30 04/19/25 09:45
I&O
04/18/25 04/19/25 04/20/25
06:59 06:59 06:59
Intake Total 1200 / 1200 1130 / 1130
Balance 1200 / 1200 1130 / 1130
[2025-04-19] MEDS: TORADOL 15 MG IV ×2 (13:15→20:26)
[2025-04-19 15:40] VITALS: BP 138/76
[2025-04-19 23:35] VITALS: BP 111/62
[2025-04-20] MEDS: ROXICODONE 10 MG PO ×2 (00:39→05:45)
[2025-04-20] MEDS: UNASYN IV ×2 (05:37→11:07)
[2025-04-20 07:19] LABS: Hematocrit 29.0 % (37.0-47.0); Hemoglobin 9.6 g/dL (12.0-16.0); Mean Corp Hgb Conc. 33.1 g/dL (33.0-37.0); Mean Corpuscular Volume 76.3 fL (81.0-99.0); Nucleated Red Blood Cells % 0 %; Platelet Count 381 10^3/uL (130-400); Red Cell Dist. Width 13.1 % (11.5-14.5)
[2025-04-20 07:46] VITALS: BP 111/68
[2025-04-20] MEDS: CLARITIN 10 MG PO (08:33)
[2025-04-20] MEDS: SENOKOT-S 2 TABLET PO (08:33)
[2025-04-20] MEDS: MIRALAX 17 GRAMS PO (08:33)
[2025-04-20] MEDS: VISBIOME 1 CAP PO (08:34)
--- NOTE | 2025-04-20 09:46 | W.PN.HOSP.TC ---
Today's Communication/Plan
-
Discharge today
Assessment / Plan
Assessment / Plan
Patient is a 44y F with PMH significant for thyroid disease and pituitary adenoma who presents to ED complaining of L breast pain, swelling and discharge. Patient initially developed symptoms in November of this year. This improved with
outpatient abx. She was then hospitalized in February with recurrent / worse symptoms. She was evaluated for suspected collection / abscess; however, no drainable collection was identified and no procedure performed. She was treated with IV abx and
transitioned to oral Keflex. Patient states that her symptoms improved, but never fully resolved.
Breast US
IMPRESSION: 2 left breast findings probably abscesses. See above. New
Probable reactive lymphadenopathy.
Brain MRI
IMPRESSION:
No MR abnormality of the pituitary. Specifically, no MR evidence for pituitary adenoma
Brain has a normal MR appearance
Sepsis
Recurrent left mastitis
Left Breast abscess
- admitted to medicine with Breast surgery consulting
- US shows two areas of likely abscess in left breast
- s/p IR guided aspiration on 04/15, cultures negative to date
- abx changed from IV Cefepime to IV Vanc/Unasyn on 04/16. Patient with itching post Vancomycin - changed to Doxycycline
- ID following, cellulitis much improved on IV Unasyn
- Medically stable for discharge on Augmentin through 04/29 as per ID, follow-up with PCP in 1 week, breast surgeon in 2-3 weeks
Constipation
- Resolved, continue Senokot�S upon discharge
Pituitary Adenoma
- Patient states that she was diagnosed in 2022 and completed 3 months of medication to shrink the tumor with brimocriptine
- Prolactin level checked in February was moderately elevated at 75, repeat here 57.
- MRI without finding of adenoma
- Dr Skinner discussed case with Dr. Klein who recommends Cabergoline 0.5mg once a week with plans to follow up outpatient. We do not have this medication in-house, have put in DCI
Mild Intermittent Asthma
- Stable. Albuterol PRN.
DVT Prophylaxis: lovenox subQ ordered, ambulation encouraged
Code Status: Full
Physical Exam
General: No acute distress
HEENT: Normocephalic, Atraumatic, EOMI, MMM
Respiratory: Clear to Auscultation bilaterally
Chest wall: Left breast diffusely firm, erythematous, tender to the touch
Cardiac: Normal S1/S2, Regular Rate and Rhythm
GI: Soft, Nontender, Nondistended, Normal Bowel Sounds
Extremities: No Clubbing, Cyanosis, or Edema
Neuro: Nonfocal/Grossly Intact
Psych: Calm, Cooperative
Anticipated Discharge: Today
Subjective/Interval History
-
Date of Service: April 20, 2025
Patient reports improvement in her left breast pain, currently 3/4 out of 10 in intensity. Denies fever. No chest pain, no shortness of breath. She feels ready for discharge today.
Objective Data
-
Labs:
Laboratory Results
04/20/25
07:03
WBC 9.9
Hgb 9.6 L
Hct 29.0 L
Plt Count 381
Vital Signs:
Vital Signs
Temp Pulse Resp BP Pulse Ox
98.3 F 73 16 111/68 97
04/20/25 07:46 04/20/25 07:46 04/20/25 07:46 04/20/25 07:46 04/20/25 08:40
I&O
04/19/25 04/20/25 04/21/25
06:59 06:59 06:59
Intake Total 1130 / 1130 1070 / 1070
Output Total 700 / 700
Balance 1130 / 1130 370 / 370
--- NOTE | 2025-04-20 10:37 | VATNOTE ---
Right arm phlebitis continues to improve. Minimal pain or redness to area, no drainage; cord palpable, though appears improved.
--- NOTE | 2025-04-20 11:16 | W.DCSUMMARY ---
Discharge Summary
Discharge Data
Date of Admission: 04/15/25
Date of Discharge: 04/20/25
-
Pending Results: No
Hospital Course
Discharge diagnosis:
Sepsis
Recurrent left breast mastitis
Left Breast abscess
Constipation
Pituitary adenoma
Elevated prolactin
Mild intermittent asthma
Consults: Breast surgery, ID
Breast US:
Scanning of the left breast shows there is a complex fluid collection at one area of pain and swelling at the 12:00 position 4 cm from nipple. It has a thick irregular rim. It measures 2.6 x 1.5 x 1.7 cm. There is through transmission. This is wider
than tall and circumscribed. This is suggestive of an abscess.
Scanning of the left breast at the second area of concern at the 10:00 position shows a wider than tall partially circumscribed hypoechoic mass probably complex fluid. It measures 2.4 x 1.5 x 2.2 cm. There is mild through transmission. This is
likely an abscess considering the above findings.
There are 2 lymph nodes with a thickened cortex in the left axilla. One cortex measures 6 mm. The second measures 8 mm.
Hospital course:
44-year-old female with a past medical history of pituitary adenoma who was admitted for sepsis secondary to recurrent left breast mastitis and left breast abscess. Patient was seen in conjunction with ID and breast surgery. She underwent
aspiration of her left breast abscess by IR. She was started on broad-spectrum antibiotics. ID transitioned her to Unasyn. Cultures were negative.
Patient was constipated and treated with laxatives. She had a bowel movement, and can continue the laxatives upon discharge.
Patient has a known pituitary adenoma and her prolactin levels were elevated. Her case was discussed with Dr. Klein who recommends Cabergoline 0.5mg once a week, and follow-up in the office.
After several days, patient's left breast pain, and erythema improved. She is medically stable and cleared by ID for discharge on Augmentin 875/125 twice a day through 04/29/2025. She can follow-up with her PCP in 1 week, breast surgery in 3-4
weeks, and endocrinology in 2-3 weeks.
Disposition: Home self-care
Discharge planning: Required 37 minutes
Discharge Plan
-
Patient Disposition: Home (Routine Discharge)
Discharge Diagnosis/Procedures: Recurrent left breast mastitis with abscess, Elevated prolactin
Condition: Good
Diet: Regular
Activity: As tolerated
Driving Restrictions: As prior to admission
Activity Restrictions/Additional Instructions:
Please follow-up with Dr. Klein/endocrinology in 2-3 weeks for your elevated prolactin.
Follow-up with your primary care doctor in 1 week, and breast surgeon in 3-4 weeks.
Referrals:
Brit Kamara MD [Active, Surgical] - in three to four weeks
Bailey Klein MD [Consulting Staff, Endocrinology] - in one to two weeks
Referral Note: follow up for elevated Prolactin levels, started on Cabergoline once a week
NONE,* [Family Provider, Internal Medicine]
Additional Discharge Medication Instructions: You are newly started on Cabergoline 0.5mg to take once a week to help treat elevated Prolactin levels.
Prescriptions:
New
cabergoline 0.5 mg tablet
0.5 mg PO Q7D 28 Days Qty: 4 0RF
sennosides-docusate sodium 8.6-50 mg Tablet
2 tab PO BID Qty: 60 0RF
oxycodone 10 mg Tablet
10 mg PO Q4HPRN PRN (Reason: severe pain) Qty: 30 0RF
amoxicillin-pot clavulanate 875-125 mg tablet
1 tab PO BID 10 Days Qty: 20 0RF
Continued
ibuprofen 200 mg Tablet
800 mg PO Q6H PRN (Reason: Pain)
albuterol sulfate 90 mcg/actuation Hfa Aerosol Inhaler
2 puff INHALATION Q6H PRN (Reason: SOB)
PNV no.95-ferrous fumarate-FA [] 28 mg iron- 800 mcg Tablet
1 tab PO DAILY
Discharge Orders:
Discharge Patient (As Directed); Ordered 04/20/25
Ordered By: Javon Chavez
Discharge Date and Time
Discharge Date/Time: 04/20/25 12:39
Print Language: [place]
--- NOTE | 2025-04-20 11:35 | CM ---
Chart reviewed. Patient stable for d/c
Transition to po abx
No CM needs at this time
Plan: Home, no needs
[2025-04-20 11:44] VITALS: BP 114/66
--- NOTE | 2025-04-20 12:01 | W.PN.ID1 ---
Date of Service
Date of Service: April 20, 2025
Today's Communication
At time of discharge, transition to Augmentin 875mg po bid through 04/29.
Assessment / Plan
# Recurrent non-puerperal left mastitis, improving
# Left breast abscesses s/p aspirations, cx neg to date
# Fever resolved
# Leukocytosis resolved
# Prolactinemia
# h/x of pituitary adenoma
-Blood cx's neg to date
- Breast abscess culture neg to date.
- Pt with elevated prolactin and thus lactates intermittently. Keep milk ducts open with warm/cold compress to reduce recurrent mastitis.
- Continue Unasyn.
- At time of discharge, transition to Augmentin 875mg po bid through 04/29.
Chief Complaint
-: Other (left breast infection)
Subjective / Review of Systems
No new complaints.
Vital Signs / Physical Exam
Vital Signs
Vital Signs
Temp Pulse Resp BP Pulse Ox
98.6 F 89 16 114/66 98
04/20/25 11:44 04/20/25 11:44 04/20/25 11:44 04/20/25 11:44 04/20/25 11:44
Physical Exam
Cardiovascular: Regular Rate and S1/S2
Pulmonary: Clear
Gastrointestinal: Soft, Non Tender and Non Distended
Extremities: Negative Edema
Skin: Other
Neurological: AO x 3
Physical Exam:
Left breast: + edema/induration lower half of breast, erythema decreasing
Objective Data
Lab Data
Lab Results
04/20/25 07:03
04/19/25 08:47
Estimated Creat Clear 98 ml/min 04/19/25 08:47
Lactic Acid Cancelled 04/15/25 01:30
Total Bilirubin 0.6 mg/dl (0.2-1.3) 04/14/25 21:49
AST 53 U/L (14-36) H 04/14/25 21:49
ALT 114 U/L (0-35) H 04/14/25 21:49
Alkaline Phosphatase 96 U/L (38-126) 04/14/25 21:49
Most recent labs reviewed.
Micro Results:
04/14/25 22:50 Blood Culture - Final
Blood/Venous No Growth - Final Report
04/14/25 21:49 Blood Culture - Final
Blood/Venous No Growth - Final Report
04/15/25 17:41 Wound Culture - Final
Breast - Left No growth
Gram Stain - Final
04/14/25 21:47 Urine Culture - Final
Urine NO GROWTH
04/15/25 Breast US: complex fluid collection at one area of pain and swelling at the 12:00 position 4 cm from nipple. It has a thick irregular rim. It measures 2.6 x 1.5 x 1.7 cm. Second area of concern at the 10:00 position shows a wider than tall
partially circumscribed hypoechoic mass probably complex fluid. It measures 2.4 x 1.5 x 2.2 cm.
== END 2025-04-20 12:39 | disposition home or self-care (01) | DRG 872 ==
LOC: 4 EAST ACU 01:47
PROVIDERS: Emergency Medicine; Internal Medicine; Radiology Vascular & Interventional Radiology; Student in an Organized Health Care Education/Training Program; ADMITTING PHYSICIAN Hospitalist; ATTENDING PHYSICIAN Family Medicine; CONSULT PHYSICIAN Internal Medicine Infectious Disease; CONSULT PHYSICIAN Surgery; EMERGENCY PHYSICIAN Emergency Medicine
PROC: 0H9U3ZZ Drainage of Left Breast, Percutaneous Approach (ICD-10-PCS; 2025-04-15)
DX: A41.9 Sepsis, unspecified organism (principal); N61.1 Abscess of the breast and nipple; K59.00 Constipation, unspecified; D35.2 Benign neoplasm of pituitary gland; J45.20 Mild intermittent asthma, uncomplicated; E03.9 Hypothyroidism, unspecified; Z80.3 Family history of malignant neoplasm of breast; Z87.891 Personal history of nicotine dependence; T36.8X5A Adverse effect of other systemic antibiotics, initial encounter
CPT/HCPCS: 10160; 70553; 76642; 80048; 80053; 81003; 81015; 82728; 83540; 83550; 83605; 84146; 84439; 84443; 84703; 85025; 85027; 87040; 87070; 87086; 87205; 96365; 96366; 96375; 99284; A9575